=== PATIENT | female | born 1940 | race African-American/Black ===

== ENCOUNTER 2017-11-03 05:40 | Inpatient (IN) | payer OTHER ==
[2017-10-29 12:43] LABS: ANION GAP 4 (5-15); CALCIUM 9.4 mg/dL (8.4-11.0); CHLORIDE 104 mmol/L (98-107); CREATININE 1.15 mg/dL (0.55-1.30); GLUCOSE 91 mg/dL (70-99); POTASSIUM 3.8 mmol/L (3.5-5.1); SODIUM SERUM 139 mmol/L (136-145); UREA NITROGEN, BLOOD 15 mg/dL (8-21)
[2017-10-29 12:47] LABS: PROTHROMBIN TIME 10.5 SECS (9.5-12.5)
[2017-10-29 12:48] LABS: BILIRUBIN,URINE NEGATIVE (NEGATIVE); BLOOD, URINE NEGATIVE (NEGATIVE); CLARITY/URINE SL HAZY (CLEAR); COLOR,URINE YELLOW (YELLOW); GLUCOSE,URINE NEGATIVE (NEGATIVE); KETONES,URINE NEGATIVE (NEGATIVE); LEUKOCYTE ESTERASE ,URINE 1+ (NEGATIVE); NITRITE, URINE NEGATIVE (NEGATIVE); PH,URINE 6.5 (5.0-8.0); PROTEIN URINE TRACE (NEGATIVE)
[2017-10-29 12:50] LABS: BASOPHILS % (AUTO) 0.8 % (0.0-2.0); EOSINOPHILS # (AUTO) 0.1 K/uL (0.0-0.4); EOSINOPHILS % (AUTO) 1.8 % (0.0-4.0); HEMATOCRIT 34.6 % (36-48); HEMOGLOBIN 11.3 g/dL (12.0-16.0); LYMPHOCYTES # (AUTO) 1.5 K/uL (1.0-5.5); LYMPHOCYTES % (AUTO) 42.6 % (20.5-51.5); MEAN CORPUSCULAR HEMOGLOBIN 32 pg (27-31); MEAN CORPUSCULAR HGB CONC 33 % (32-36); MEAN CORPUSCULAR VOLUME 97 fL (79.0-98.0); MONOCYTES # (AUTO) 0.3 K/uL (0.0-1.0); MONOCYTES % (AUTO) 7.6 % (1.7-9.3); NEUTROPHILS # (AUTO) 1.5 K/uL (1.8-7.7); NEUTROPHILS % (AUTO) 47.2 % (40.0-70.0); PLATELET COUNT (AUTO) 204 K/uL (130-430); RED BLOOD CELL COUNT(AUTO) 3.58 MIL/uL (4.2-6.2); RED CELL DISTRIBUTION WIDTH 12.5 % (9.0-15.0); WHITE BLOOD COUNT (AUTO) 3.4 K/uL (4.8-10.8)
[2017-10-29 13:03] LABS: BACTERIA,URINE MODERATE /HPF (None Seen); RBC,URINE NONE SEEN /HPF (0-3); WBC,URINE 20-50 /HPF (0-3)
[2017-10-29 13:04] LABS: MUCUS,URINE None Seen /LPF (None Seen)
[~2017-11-03] VITALS: Ht 167.6 cm; Wt 63.5 kg
[~2017-11-03 05:40] MED LIST: COR25 PO; FURO-149 PO; LISI5TAB PO; OMEP20CA10 PO; POTA20TA83 PO
[2017-11-03] MEDS ORDERED: CELECOXIB 200 MG CAPSULE ONE (06:28)
[2017-11-03] MEDS ORDERED: GABAPENTIN 300 MG CAPSULE ONE (06:29)
[2017-11-03] MEDS ORDERED: ACETAMINOPHEN 500 MG TABLET ONE (06:29)
[2017-11-03] MEDS ORDERED: oxyCODONE HCL 10 MG TAB.ER.12H PO ONE ×2 (06:30→07:45)
[2017-11-03] MEDS ORDERED: TRANEXAMIC ACID 650 MG TABLET ONE (06:30)
[2017-11-03] MEDS ORDERED: CLINDAMYCIN 600 mg/50mL D5W 50 ML IV ONE ×2 (06:30→07:04)
[2017-11-03] MEDS ORDERED: POLYMYXIN 500,000/BACIT.10,000 UNITS in NS IRR 1 L IR ONE (07:10)
[2017-11-03] MEDS ORDERED: LISI10TA5 PO (07:24)
[2017-11-03] MEDS ORDERED: RIVA15TA PO (07:24)
[2017-11-03] MEDS ORDERED: HYDR-1189 PO (07:24)
[2017-11-03] MEDS ORDERED: GABAPENTIN 300 MG CAPSULE PO ONE (07:45)
[2017-11-03] MEDS ORDERED: TRANEXAMIC ACID 650 MG TABLET PO ONE (07:45)
[2017-11-03] MEDS ORDERED: CELECOXIB 200 MG CAPSULE PO ONE (07:45)
[2017-11-03] MEDS ORDERED: ACETAMINOPHEN 500 MG TABLET PO ONE (07:45)
[2017-11-03] MEDS ORDERED: MUPIROCIN 2% TOPICAL OINTMENT 22 GM TP PRN (07:45)
[2017-11-03] MEDS ORDERED: NACL 0.9% 1,000 ML IV ONE (07:45)
[2017-11-03] MEDS ORDERED: ROPIVACAINE 0.2% 550 ML INJ SCH ×3 (08:34→10:01)
[2017-11-03] MEDS ORDERED: ONDANSETRON HCL 4 MG/2 ML VIAL IVP PRN ×2 (08:45→09:30)
[2017-11-03] MEDS ORDERED: KETOROLAC TROMETHAMINE 30 MG VIAL IVP PRN (08:45)
[2017-11-03] MEDS ORDERED: DIPHENHYDRAMINE INJ 50 MG/ML VIAL IVP PRN (08:45)
[2017-11-03] MEDS ORDERED: NALBUPHINE HCL 10 MG/ML AMP IVP PRN (08:45)
[2017-11-03] MEDS ORDERED: HYDROmorphone 1 MG INJ. 1 MG/ML AMPUL IVP PRN (08:45)
[2017-11-03] MEDS ORDERED: fentaNYL CITRATE/PF 100 MCG/2 ML AMP IVP PRN ×2 (08:45)
[2017-11-03] MEDS ORDERED: MORPHINE 4 MG/ML INJ. SYRINGE IVP PRN (09:30)
[2017-11-03] MEDS ORDERED: DIPHENHYDRAMINE HCL 25 MG CAPSULE PO PRN (09:30)
[2017-11-03] MEDS ORDERED: KETOROLAC TROMETHAMINE 15 MG VIAL IVP PRN (09:30)
[2017-11-03] MEDS ORDERED: SENNOSIDES 8.6 MG TABLET PO PRN (09:30)
[2017-11-03] MEDS ORDERED: oxyCODONE HCL 5 MG TABLET PO PRN (09:30)
[2017-11-03] MEDS ORDERED: PROMETHAZINE HCL 25 MG/ML AMP IVP PRN (09:30)
[2017-11-03] MEDS ORDERED: LEVOFLOXACIN 500 MG/D5W 100 ML IV ONE (09:45)
[2017-11-03 10:40] VITALS: BP_SYST 121
[2017-11-03 10:45] VITALS: BP_SYST 118
[2017-11-03] MEDS: D5LR 1,000 ML IV SCH ×2 (11:07→22:21)
[2017-11-03] MEDS: CLINDAMYCIN 600 MG in D5W 50 ML IV SCH ×3 (11:59→23:43)
[2017-11-03] MEDS: ONDANSETRON HCL 4 MG/2 ML VIAL IVP PRN ×2 (12:10→18:34)
[2017-11-03 14:00] VITALS: BP_SYST 110
[2017-11-03] MEDS: ACETAMINOPHEN 500 MG TABLET PO SCH ×2 (14:34→20:25)
[2017-11-03] MEDS ORDERED: POTASSIUM CHLORIDE 20 MEQ TAB.PRT.SR PO SCH (15:00)
[2017-11-03 20:16] VITALS: BP_SYST 95
[2017-11-03] MEDS: GABAPENTIN 300 MG CAPSULE PO SCH (20:24)
[2017-11-03] MEDS: POTASSIUM CHLORIDE 20 MEQ TAB.PRT.SR PO SCH (20:24)
[2017-11-03] MEDS: CELECOXIB 200 MG CAPSULE PO SCH (20:24)
[2017-11-03] MEDS: CARVEDILOL 25 MG TABLET (COREG) PO SCH (20:34)
[2017-11-03] MEDS ORDERED: FUROSEMIDE 40 MG TABLET PO SCH (21:00)
[2017-11-04 00:38] VITALS: BP_SYST 128
[2017-11-04 04:00] VITALS: BP_SYST 98
[2017-11-04] MEDS: CLINDAMYCIN 600 MG in D5W 50 ML IV SCH (05:18)
[2017-11-04 06:23] LABS: BASOPHILS % (AUTO) 0.4 % (0.0-2.0); EOSINOPHILS # (AUTO) 0.1 K/uL (0.0-0.4); EOSINOPHILS % (AUTO) 1.8 % (0.0-4.0); HEMATOCRIT 26.5 % (36-48); HEMOGLOBIN 8.7 g/dL (12.0-16.0); LYMPHOCYTES # (AUTO) 1.1 K/uL (1.0-5.5); LYMPHOCYTES % (AUTO) 26.7 % (20.5-51.5); MEAN CORPUSCULAR HEMOGLOBIN 32 pg (27-31); MEAN CORPUSCULAR HGB CONC 33 % (32-36); MEAN CORPUSCULAR VOLUME 97 fL (79.0-98.0); MONOCYTES # (AUTO) 0.4 K/uL (0.0-1.0); MONOCYTES % (AUTO) 9.8 % (1.7-9.3); NEUTROPHILS # (AUTO) 2.6 K/uL (1.8-7.7); NEUTROPHILS % (AUTO) 61.3 % (40.0-70.0); PLATELET COUNT (AUTO) 133 K/uL (130-430); RED BLOOD CELL COUNT(AUTO) 2.74 MIL/uL (4.2-6.2); RED CELL DISTRIBUTION WIDTH 12.2 % (9.0-15.0); WHITE BLOOD COUNT (AUTO) 4.2 K/uL (4.8-10.8)
[2017-11-04 06:30] VITALS: BP_SYST 97
[2017-11-04 06:56] LABS: ANION GAP 1 (5-15); CALCIUM 8.6 mg/dL (8.4-11.0); CHLORIDE 109 mmol/L (98-107); CREATININE 1.44 mg/dL (0.55-1.30); GLUCOSE 91 mg/dL (70-99); POTASSIUM 3.9 mmol/L (3.5-5.1); SODIUM SERUM 141 mmol/L (136-145); UREA NITROGEN, BLOOD 19 mg/dL (8-21)
[2017-11-04 08:00] VITALS: BP_SYST 101
[2017-11-04] MEDS: LEVOFLOXACIN 500 MG/D5W 100 ML IV SCH (08:35)
[2017-11-04] MEDS: CELECOXIB 200 MG CAPSULE PO SCH ×2 (08:35→21:10)
[2017-11-04] MEDS: POTASSIUM CHLORIDE 20 MEQ TAB.PRT.SR PO SCH ×2 (08:36→21:09)
[2017-11-04] MEDS: OMEPRAZOLE 20 MG CAPSULE.DR (PriLOSEC) PO SCH (08:36)
[2017-11-04] MEDS: ACETAMINOPHEN 500 MG TABLET PO SCH ×3 (09:00→21:09)
[2017-11-04] MEDS ORDERED: LISINOPRIL 5 MG TABLET PO SCH (09:00)
[2017-11-04] MEDS: CARVEDILOL 25 MG TABLET (COREG) PO SCH ×2 (09:00→21:11)
[2017-11-04] MEDS: LISINOPRIL 10 MG TABLET (PRINIVIL) PO SCH (09:00)
[2017-11-04] MEDS: FUROSEMIDE 40 MG TABLET PO SCH (09:00)
[2017-11-04] MEDS: RIVAROXABAN 15 MG TABLET PO SCH (10:19)
[2017-11-04] MEDS: D5LR 1,000 ML IV SCH ×2 (10:24→15:25)
[2017-11-04 12:01] VITALS: BP_SYST 115
[2017-11-04 16:19] VITALS: BP_SYST 114
[2017-11-04] MEDS: GABAPENTIN 300 MG CAPSULE PO SCH (21:09)
[2017-11-04] MEDS: oxyCODONE HCL 5 MG TABLET PO PRN (23:26)
[2017-11-05 00:01] VITALS: BP_SYST 121
[2017-11-05] MEDS: D5LR 1,000 ML IV SCH ×2 (01:25→11:25)
[2017-11-05] MEDS: oxyCODONE HCL 5 MG TABLET PO PRN (04:14)
[2017-11-05 06:05] LABS: BASOPHILS % (AUTO) 0.1 % (0.0-2.0); EOSINOPHILS % (AUTO) 0.3 % (0.0-4.0); HEMATOCRIT 24.9 % (36-48); HEMOGLOBIN 8.3 g/dL (12.0-16.0); LYMPHOCYTES # (AUTO) 0.6 K/uL (1.0-5.5); LYMPHOCYTES % (AUTO) 6.1 % (20.5-51.5); MEAN CORPUSCULAR HEMOGLOBIN 32 pg (27-31); MEAN CORPUSCULAR HGB CONC 33 % (32-36); MEAN CORPUSCULAR VOLUME 97 fL (79.0-98.0); MONOCYTES # (AUTO) 0.5 K/uL (0.0-1.0); NEUTROPHILS # (AUTO) 8.4 K/uL (1.8-7.7); NEUTROPHILS % (AUTO) 88.5 % (40.0-70.0); PLATELET COUNT (AUTO) 117 K/uL (130-430); RED BLOOD CELL COUNT(AUTO) 2.57 MIL/uL (4.2-6.2); RED CELL DISTRIBUTION WIDTH 12.4 % (9.0-15.0); WHITE BLOOD COUNT (AUTO) 9.5 K/uL (4.8-10.8)
[2017-11-05 06:09] VITALS: BP_SYST 123
[2017-11-05 06:46] LABS: ANION GAP 6 (5-15); CALCIUM 8.3 mg/dL (8.4-11.0); CHLORIDE 108 mmol/L (98-107); CREATININE 1.44 mg/dL (0.55-1.30); GLUCOSE 132 mg/dL (70-99); POTASSIUM 4.5 mmol/L (3.5-5.1); SODIUM SERUM 141 mmol/L (136-145); UREA NITROGEN, BLOOD 17 mg/dL (8-21)
[2017-11-05 08:28] VITALS: BP_SYST 92
[2017-11-05] MEDS: CELECOXIB 200 MG CAPSULE PO SCH (09:00)
[2017-11-05] MEDS: LEVOFLOXACIN 500 MG/D5W 100 ML IV SCH (09:00)
[2017-11-05] MEDS: CARVEDILOL 25 MG TABLET (COREG) PO SCH (09:00)
[2017-11-05] MEDS: FUROSEMIDE 40 MG TABLET PO SCH (09:00)
[2017-11-05] MEDS: LISINOPRIL 10 MG TABLET (PRINIVIL) PO SCH (09:00)
[2017-11-05] MEDS: OMEPRAZOLE 20 MG CAPSULE.DR (PriLOSEC) PO SCH (09:05)
[2017-11-05] MEDS: ACETAMINOPHEN 500 MG TABLET PO SCH ×2 (09:07→14:09)
[2017-11-05] MEDS: POTASSIUM CHLORIDE 20 MEQ TAB.PRT.SR PO SCH (09:07)
[2017-11-05] MEDS: RIVAROXABAN 15 MG TABLET PO SCH (10:24)
[2017-11-05 10:47] VITALS: BP_SYST 90
[2017-11-05 12:06] VITALS: BP_SYST 97
[2017-11-05 16:25] VITALS: BP_SYST 106
== END 2017-11-05 18:50 | disposition home health service (06) | DRG 470 ==
LOC: SMU 05:40 → STU 10:35 → SMU 11-04 22:22
PROVIDERS: ADMIT Orthopaedic Surgery; ATTEND Orthopaedic Surgery
PROC: 0SRD0J9 Replacement of Left Knee Joint with Synthetic Substitute, Cemented, Open Approach (ICD-10-PCS; principal; 2017-11-03 07:30)
DX: M17.12 Unilateral primary osteoarthritis, left knee (principal); Z86.74 Personal history of sudden cardiac arrest; M25.762 Osteophyte, left knee; I25.10 Atherosclerotic heart disease of native coronary artery without angina pectoris; I10 Essential (primary) hypertension; Z85.72 Personal history of non-Hodgkin lymphomas; Z88.0 Allergy status to penicillin; I25.2 Old myocardial infarction
CPT/HCPCS: 36415; 71046-TC; 80048; 81000-TC; 85025; 85610-TC; 85730-TC; 87081; 87086; 87186-TC; 88305; 88311; 97039; 97110-GP; 97116-GP; 97530-GP; 97535-GP; J1200; J1885; J1956; J2405; J2795; J3490; J7060; J7120

== ENCOUNTER 2018-03-09 09:15 | Emergency (ER) | payer OTHER ==
[~2018-03-09] VITALS: Ht 167.6 cm; Wt 65.3 kg
[2018-03-09 09:15] VITALS: BP_SYST 146
[~2018-03-09 09:15] MED LIST changes: +HYDR-1189 PO; +LISI10TA5 PO; +RIVA15TA PO
[2018-03-09] MEDS ORDERED: NACL 0.9% 1,000 ML IV ONE (10:01)
[2018-03-09] MEDS ORDERED: KETOROLAC TROMETHAMINE 15 MG VIAL IVP ONE (10:15)
[2018-03-09 10:27] LABS: ALANINE AMINOTRANSFERASE 9 U/L (12-78); ALBUMIN 2.9 g/dL (3.4-4.8); ANION GAP 9 (5-15); ASPARTATE AMINOTRANSFERASE 14 U/L (10-37); CALCIUM 8.6 mg/dL (8.4-11.0); CHLORIDE 104 mmol/L (98-107); CREATININE 1.63 mg/dL (0.55-1.30); GLUCOSE 161 mg/dL (70-99); LIPASE 77 U/L (73-393); POTASSIUM 3.5 mmol/L (3.5-5.1); SODIUM SERUM 138 mmol/L (136-145); TOTAL BILIRUBIN 1.5 mg/dL (0.0-1.0)
[2018-03-09] MEDS ORDERED: POTA8TAB4 PO (10:38)
[2018-03-09] MEDS ORDERED: MELO15TA13 PO (10:38)
[2018-03-09] MEDS ORDERED: OMEP40CA33 PO (10:38)
[2018-03-09] MEDS ORDERED: LISI40TA4 PO (10:38)
[2018-03-09 10:45] LABS: HEMATOCRIT 33.2 % (36-48); HEMOGLOBIN 11.2 g/dL (12.0-16.0); MEAN CORPUSCULAR HEMOGLOBIN 33 pg (27-31); MEAN CORPUSCULAR HGB CONC 34 % (32-36); MEAN CORPUSCULAR VOLUME 97 fL (79.0-98.0); PLATELET COUNT (AUTO) 121 K/uL (130-430); RED BLOOD CELL COUNT(AUTO) 3.42 MIL/uL (4.2-6.2); RED CELL DISTRIBUTION WIDTH 13.9 % (9.0-15.0); WHITE BLOOD COUNT (AUTO) 10.7 K/uL (4.8-10.8)
[2018-03-09 10:46] LABS: UREA NITROGEN, BLOOD 28 mg/dL (8-21)
[2018-03-09 11:19] LABS: BILIRUBIN,URINE 2+ (NEGATIVE); BLOOD, URINE 2+ (NEGATIVE); CLARITY/URINE HAZY (CLEAR); COLOR,URINE AMBER (YELLOW); GLUCOSE,URINE NEGATIVE (NEGATIVE); KETONES,URINE TRACE (NEGATIVE); LEUKOCYTE ESTERASE ,URINE TRACE (NEGATIVE); NITRITE, URINE POSITIVE (NEGATIVE); PH,URINE 5.5 (5.0-8.0); PROTEIN URINE 3+ (NEGATIVE)
[2018-03-09 11:36] LABS: ATYPICAL LYMPHOCYTES % 0 % (0-0); BAND % (MANUAL) 8 % (0-6); LYMPHOCYTES % (MANUAL) 8 % (20-46); MONOCYTES % (MANUAL) 4 % (0-11)
[2018-03-09 11:49] LABS: BACTERIA,URINE MANY /HPF (None Seen); MUCUS,URINE 1+ /LPF (None Seen)
[2018-03-09 11:58] LABS: BASOPHILS % (MANUAL) 0 % (0-2); EOSINOPHILS % (MANUAL) 0 % (0-7)
[2018-03-09 12:15] VITALS: BP_SYST 108
== END 2018-03-09 12:15 | disposition home or self-care (01) ==
LOC: SED 09:15
DX: R10.30 Lower abdominal pain, unspecified (principal); K92.0 Hematemesis; R50.9 Fever, unspecified; Z88.0 Allergy status to penicillin; I10 Essential (primary) hypertension; Z79.899 Other long term (current) drug therapy; R19.7 Diarrhea, unspecified
CPT/HCPCS: 36415; 80053; 81000; 83690; 85007; 85027; 87086; 96361; 96374; 99284; J1885; J7030

== ENCOUNTER 2018-03-14 09:42 | Inpatient (IN) | payer OTHER ==
[~2018-03-14] VITALS: Ht 167.6 cm; Wt 64.4 kg
[~2018-03-14 09:42] MED LIST changes: -HYDR-1189 PO; -LISI10TA5 PO; +LISI40TA4 PO; -LISI5TAB PO; +MELO15TA13 PO; -OMEP20CA10 PO; +OMEP40CA33 PO; -POTA20TA83 PO; +POTA8TAB4 PO; -RIVA15TA PO
[2018-03-14 09:47] VITALS: BP_SYST 139
[2018-03-14 10:30] LABS: BILIRUBIN,URINE 2+ (NEGATIVE); BLOOD, URINE 1+ (NEGATIVE); CLARITY/URINE HAZY (CLEAR); COLOR,URINE AMBER (YELLOW); GLUCOSE,URINE NEGATIVE (NEGATIVE); KETONES,URINE TRACE (NEGATIVE); LEUKOCYTE ESTERASE ,URINE TRACE (NEGATIVE); PROTEIN URINE 2+ (NEGATIVE)
[2018-03-14 10:34] LABS: NITRITE, URINE POSITIVE (NEGATIVE)
[2018-03-14 10:37] LABS: BACTERIA,URINE MANY /HPF (None Seen)
[2018-03-14 10:38] LABS: MUCUS,URINE 1+ /LPF (None Seen)
[2018-03-14 10:47] LABS: ANION GAP 9 (5-15); BASOPHILS # (AUTO) 0.2 K/uL (0.0-0.2); CALCIUM 8.9 mg/dL (8.4-11.0); CHLORIDE 107 mmol/L (98-107); CREATININE 1.42 mg/dL (0.55-1.30); EOSINOPHILS % (AUTO) 0.1 % (0.0-4.0); GLUCOSE 114 mg/dL (70-99); HEMOGLOBIN 9.7 g/dL (12.0-16.0); LYMPHOCYTES # (AUTO) 0.6 K/uL (1.0-5.5); LYMPHOCYTES % (AUTO) 3.7 % (20.5-51.5); MEAN CORPUSCULAR HEMOGLOBIN 33 pg (27-31); MEAN CORPUSCULAR HGB CONC 35 % (32-36); MEAN CORPUSCULAR VOLUME 96 fL (79.0-98.0); MONOCYTES # (AUTO) 0.3 K/uL (0.0-1.0); MONOCYTES % (AUTO) 1.8 % (1.7-9.3); NEUTROPHILS # (AUTO) 16.1 K/uL (1.8-7.7); NEUTROPHILS % (AUTO) 93.4 % (40.0-70.0); PLATELET COUNT (AUTO) 316 K/uL (130-430); RED BLOOD CELL COUNT(AUTO) 2.91 MIL/uL (4.2-6.2); RED CELL DISTRIBUTION WIDTH 14.1 % (9.0-15.0); SODIUM SERUM 140 mmol/L (136-145); UREA NITROGEN, BLOOD 16 mg/dL (8-21); WHITE BLOOD COUNT (AUTO) 17.2 K/uL (4.8-10.8)
[2018-03-14 10:48] LABS: POTASSIUM 3.5 mmol/L (3.5-5.1)
[2018-03-14 10:50] LABS: INR 1.1 (0.8-1.2); PROTHROMBIN TIME 11.3 SECS (9.5-12.5)
[2018-03-14 10:53] LABS: ALANINE AMINOTRANSFERASE 14 U/L (12-78); ALBUMIN 2.3 g/dL (3.4-4.8); AMYLASE 65 U/L (0-100); ASPARTATE AMINOTRANSFERASE 28 U/L (10-37); LIPASE 209 U/L (73-393); TOTAL BILIRUBIN 1.4 mg/dL (0.0-1.0)
[2018-03-14] MEDS ORDERED: MORPHINE 4 MG/ML INJ. SYRINGE IVP ONE (12:00)
[2018-03-14] MEDS ORDERED: ONDANSETRON HCL 4 MG/2 ML VIAL IVP ONE (12:00)
[2018-03-14] MEDS ORDERED: metroNIDAZOLE 500 mg/NS 100 ML IV ONE (12:00)
[2018-03-14] MEDS ORDERED: NACL 0.9% 1,000 ML IV ONE (12:00)
[2018-03-14] MEDS ORDERED: PIPERACILLIN/TAZO 3.375 GM in NS 50 ML IV ONE (12:00)
[2018-03-14] MEDS ORDERED: PIPERACILLIN/TAZOBACTAM 3.375 GM/VIAL (ZOSYN) IV ONE (12:12)
[2018-03-14] MEDS ORDERED: METRONIDAZOLE IV ONE (12:33)
[2018-03-14] MEDS ORDERED: NS IV ONE (12:33)
[2018-03-14] MEDS ORDERED: D5/0.45 NS 1,000 ML IV ONE (13:00)
[2018-03-14 13:33] VITALS: BP_SYST 102
[2018-03-14] MEDS ORDERED: MORPHINE 2 MG/ML INJ. SYRINGE IVP PRN (15:30)
[2018-03-14] MEDS: MORPHINE 4 MG/ML INJ. SYRINGE IVP PRN (15:39)
[2018-03-14 16:26] VITALS: BP_SYST 102
[2018-03-14] MEDS ORDERED: ALBUMIN HUMAN 25% 12.5 GM/50 ML VIAL IV ONE (19:00)
[2018-03-14] MEDS ORDERED: NEOSTIGMINE METHYLSULFATE 1 MG/ML, 10 ML VIAL IVP ONE (19:00)
[2018-03-14] MEDS ORDERED: fentaNYL CITRATE/PF 100 MCG/2 ML AMP IVP ONE (19:00)
[2018-03-14] MEDS ORDERED: ROCURONIUM BROMIDE 10 MG/ML (ZEMURON) IV ONE (19:00)
[2018-03-14] MEDS ORDERED: PROPOFOL 200MG/ 20ML VIAL (DIPRIVAN) IV ONE (19:00)
[2018-03-14] MEDS ORDERED: LR 1,000 ML IV.SOLN IV ONE (19:00)
[2018-03-14] MEDS ORDERED: BUPIVACAINE /PF 0.25% 30 ML VIAL INJ ONE (19:00)
[2018-03-14] MEDS ORDERED: ePHEDrine sulfate 50 MG/ML VIAL IVP ONE (19:00)
[2018-03-14] MEDS ORDERED: GLYCOPYRROLATE 0.2 MG/ML VIAL IJ ONE (19:00)
[2018-03-14] MEDS ORDERED: MIDAZOLAM HCL 5 MG/5 ML VIAL IVP ONE (19:00)
[2018-03-14] MEDS ORDERED: SEVOFLURANE 15 MIN GAS INH ONE (19:00)
[2018-03-14] MEDS ORDERED: ONDANSETRON HCL 4 MG/2 ML VIAL IVP PRN ×2 (19:45→22:00)
[2018-03-14] MEDS ORDERED: fentaNYL CITRATE/PF 100 MCG/2 ML AMP IVP PRN ×2 (19:45)
[2018-03-14 20:23] VITALS: BP_SYST 102
[2018-03-14] MEDS ORDERED: ACETAMINOPHEN 325 MG TABLET PO PRN ×2 (22:00)
[2018-03-14] MEDS ORDERED: MORPHINE 4 MG/ML INJ. SYRINGE IVP PRN (22:00)
[2018-03-14] MEDS ORDERED: ZOLPIDEM TARTRATE 5 MG TABLET PO PRN (22:00)
[2018-03-14] MEDS ORDERED: fentaNYL CITRATE/PF 100 MCG/2 ML AMP ONE (22:05)
[2018-03-14 22:45] VITALS: BP_SYST 99
[2018-03-14] MEDS ORDERED: metroNIDAZOLE 500 mg/NS 200 ML IV ONE (22:57)
[2018-03-14 23:00] VITALS: BP_SYST 98
[2018-03-14] MEDS ORDERED: NS 500 ML IV ONE (23:00)
[2018-03-14] MEDS: KCL 20 mEq in D5NS 1000 mL 1,000 ML IV SCH (23:13)
[2018-03-14] MEDS: metroNIDAZOLE 500 mg/NS 100 ML IV SCH (23:23)
[2018-03-15] VITALS (23 sets, daily range): BP systolic 89–115
[2018-03-15] MEDS: MORPHINE 4 MG/ML INJ. SYRINGE IVP PRN ×3 (05:05→21:45)
[2018-03-15 05:20] LABS: HEMATOCRIT 23.4 % (36-48); HEMOGLOBIN 7.9 g/dL (12.0-16.0); MEAN CORPUSCULAR HEMOGLOBIN 33 pg (27-31); MEAN CORPUSCULAR HGB CONC 34 % (32-36); MEAN CORPUSCULAR VOLUME 98 fL (79.0-98.0); PLATELET COUNT (AUTO) 269 K/uL (130-430); RED CELL DISTRIBUTION WIDTH 14.1 % (9.0-15.0); WHITE BLOOD COUNT (AUTO) 23.4 K/uL (4.8-10.8)
[2018-03-15 05:35] LABS: ANION GAP 7 (5-15); CALCIUM 7.9 mg/dL (8.4-11.0); CHLORIDE 110 mmol/L (98-107); CREATININE 1.21 mg/dL (0.55-1.30); GLUCOSE 193 mg/dL (70-99); POTASSIUM 3.5 mmol/L (3.5-5.1); SODIUM SERUM 140 mmol/L (136-145); UREA NITROGEN, BLOOD 13 mg/dL (8-21)
[2018-03-15 05:36] LABS: ALANINE AMINOTRANSFERASE 8 U/L (12-78); ALBUMIN 1.9 g/dL (3.4-4.8); ASPARTATE AMINOTRANSFERASE 17 U/L (10-37)
[2018-03-15 05:42] LABS: TOTAL BILIRUBIN 3.4 mg/dL (0.0-1.0)
[2018-03-15 05:47] LABS: BAND % (MANUAL) 13 % (0-6); BASOPHILS % (MANUAL) 0 % (0-2); EOSINOPHILS % (MANUAL) 0 % (0-7); LYMPHOCYTES % (MANUAL) 1 % (20-46); MONOCYTES % (MANUAL) 2 % (0-11)
[2018-03-15] MEDS: metroNIDAZOLE 500 mg/NS 100 ML IV SCH ×3 (06:17→21:45)
[2018-03-15] MEDS: KCL 20 mEq in D5NS 1000 mL 1,000 ML IV SCH ×3 (07:27→18:15)
[2018-03-15] MEDS: ENOXAPARIN SODIUM 40 MG/0.4 ML SYRINGE SUBCUT SCH (08:41)
[2018-03-15] MEDS ORDERED: POTASSIUM CHLORIDE 8 MEQ TABLET.SA PO ONE (11:15)
[2018-03-15] MEDS ORDERED: FUROSEMIDE 40 MG TABLET PO ONE (11:15)
[2018-03-15] MEDS ORDERED: MELOXICAM 7.5 MG TABLET PO ONE (11:15)
[2018-03-15] MEDS ORDERED: LISINOPRIL 20 MG TABLET PO ONE (11:15)
[2018-03-15] MEDS ORDERED: CARVEDILOL 25 MG TABLET (COREG) PO ONE (11:15)
[2018-03-15] MEDS: OMEPRAZOLE 20 MG CAPSULE.DR (PriLOSEC) PO SCH ×3 (11:30→20:14)
[2018-03-15] MEDS: VANCOMYCIN HCL 1,000 MG in NS 250 ML IV SCH (17:23)
[2018-03-15] MEDS ORDERED: *PPN PER PHARMACY XX PRN (18:30)
[2018-03-15] MEDS ORDERED: DEXTROSE 50% JECT 50 ML DISP.SYRIN IVP PRN (18:30)
[2018-03-15] MEDS ORDERED: D10W 1,000 ML IV SCH (19:00)
[2018-03-15] MEDS: CARVEDILOL 25 MG TABLET (COREG) PO SCH (20:14)
[2018-03-16] VITALS (15 sets, daily range): BP systolic 91–118
[2018-03-16] MEDS: KCL 20 mEq in D5NS 1000 mL 1,000 ML IV SCH ×4 (00:59→20:55)
[2018-03-16] MEDS: LORazepam 2 MG/ML VIAL IVP PRN ×2 (01:00→23:37)
[2018-03-16] MEDS: metroNIDAZOLE 500 mg/NS 100 ML IV SCH ×3 (06:16→21:21)
[2018-03-16] MEDS: OMEPRAZOLE 20 MG CAPSULE.DR (PriLOSEC) PO SCH ×4 (06:16→20:13)
[2018-03-16] MEDS ORDERED: OMEPRAZOLE 20 MG CAPSULE.DR (PriLOSEC) ONE ×2 (06:17→06:19)
[2018-03-16] MEDS: MORPHINE 2 MG/ML INJ. SYRINGE IVP PRN ×3 (06:37→15:20)
[2018-03-16 06:51] LABS: BASOPHILS # (AUTO) 0.1 K/uL (0.0-0.2); BASOPHILS % (AUTO) 0.4 % (0.0-2.0); EOSINOPHILS # (AUTO) 0.1 K/uL (0.0-0.4); EOSINOPHILS % (AUTO) 0.6 % (0.0-4.0); HEMATOCRIT 26.5 % (36-48); HEMOGLOBIN 9.1 g/dL (12.0-16.0); LYMPHOCYTES # (AUTO) 0.8 K/uL (1.0-5.5); LYMPHOCYTES % (AUTO) 4.7 % (20.5-51.5); MEAN CORPUSCULAR HEMOGLOBIN 33 pg (27-31); MEAN CORPUSCULAR HGB CONC 34 % (32-36); MEAN CORPUSCULAR VOLUME 95 fL (79.0-98.0); MONOCYTES # (AUTO) 0.5 K/uL (0.0-1.0); MONOCYTES % (AUTO) 2.6 % (1.7-9.3); NEUTROPHILS # (AUTO) 16.3 K/uL (1.8-7.7); NEUTROPHILS % (AUTO) 91.7 % (40.0-70.0); PLATELET COUNT (AUTO) 295 K/uL (130-430); RED BLOOD CELL COUNT(AUTO) 2.79 MIL/uL (4.2-6.2); RED CELL DISTRIBUTION WIDTH 15.8 % (9.0-15.0); WHITE BLOOD COUNT (AUTO) 17.8 K/uL (4.8-10.8)
[2018-03-16 07:03] LABS: ALANINE AMINOTRANSFERASE 7 U/L (12-78); ALBUMIN 1.6 g/dL (3.4-4.8); ANION GAP 4 (5-15); ASPARTATE AMINOTRANSFERASE 18 U/L (10-37); CHLORIDE 117 mmol/L (98-107); CREATININE 0.95 mg/dL (0.55-1.30); GLUCOSE 143 mg/dL (70-99); POTASSIUM 3.9 mmol/L (3.5-5.1); SODIUM SERUM 144 mmol/L (136-145); TOTAL BILIRUBIN 3.9 mg/dL (0.0-1.0); UREA NITROGEN, BLOOD 12 mg/dL (8-21)
[2018-03-16 08:36] LABS: PHOSPHORUS 2.4 mg/dL (2.7-4.5)
[2018-03-16] MEDS: CARVEDILOL 25 MG TABLET (COREG) PO SCH ×2 (09:00→20:14)
[2018-03-16] MEDS: LISINOPRIL 20 MG TABLET PO SCH (09:00)
[2018-03-16] MEDS: MELOXICAM 7.5 MG TABLET PO SCH (09:07)
[2018-03-16] MEDS: POTASSIUM CHLORIDE 8 MEQ TABLET.SA PO SCH (09:08)
[2018-03-16] MEDS: FUROSEMIDE 40 MG TABLET PO SCH (10:17)
[2018-03-16] MEDS: ENOXAPARIN SODIUM 40 MG/0.4 ML SYRINGE SUBCUT SCH (11:17)
[2018-03-16] MEDS: VANCOMYCIN HCL 1,000 MG in NS 250 ML IV SCH (16:02)
[2018-03-16] MEDS ORDERED: TPN PERIPHERAL 0.0001 ML, SODIUM ACETATE 40 MEQ, POTASSIUM ACETATE 20 MEQ, K PHOS 9 MM,... IV SCH ×10 (18:00)
[2018-03-16] MEDS: FAT EMULSIONS 250 ML IV SCH (18:06)
[2018-03-16] MEDS: TPN PERIPHERAL 0.0001 ML, SODIUM ACETATE 40 MEQ, POTASSIUM ACETATE 20 MEQ, K PHOS 9 MM,... IV SCH ×9 (18:07)
[2018-03-16] MEDS: MORPHINE 4 MG/ML INJ. SYRINGE IVP PRN (20:13)
[2018-03-16] MEDS: INSULIN REGULAR, HUMAN 100 UNITS/ML, 10 ML VIAL (novoLIN R) SUBCUT PRN (23:37)
[2018-03-17 01:10] VITALS: BP_SYST 110
[2018-03-17] MEDS: KCL 20 mEq in D5NS 1000 mL 1,000 ML IV SCH ×3 (04:03→15:50)
[2018-03-17] MEDS: metroNIDAZOLE 500 mg/NS 100 ML IV SCH ×3 (05:33→21:57)
[2018-03-17] MEDS: ONDANSETRON HCL 4 MG/2 ML VIAL IVP PRN (05:48)
[2018-03-17] MEDS: OMEPRAZOLE 20 MG CAPSULE.DR (PriLOSEC) PO SCH ×4 (06:09→21:54)
[2018-03-17 06:31] LABS: ALANINE AMINOTRANSFERASE 7 U/L (12-78); ALBUMIN 1.5 g/dL (3.4-4.8); ANION GAP 5 (5-15); ASPARTATE AMINOTRANSFERASE 18 U/L (10-37); CALCIUM 7.8 mg/dL (8.4-11.0); CHLORIDE 114 mmol/L (98-107); CREATININE 0.94 mg/dL (0.55-1.30); GLUCOSE 140 mg/dL (70-99); POTASSIUM 4.2 mmol/L (3.5-5.1); SODIUM SERUM 143 mmol/L (136-145); TOTAL BILIRUBIN 1.6 mg/dL (0.0-1.0); UREA NITROGEN, BLOOD 13 mg/dL (8-21)
[2018-03-17 06:37] LABS: BASOPHILS % (AUTO) 0.2 % (0.0-2.0); EOSINOPHILS # (AUTO) 0.1 K/uL (0.0-0.4); EOSINOPHILS % (AUTO) 1.1 % (0.0-4.0); HEMATOCRIT 26.1 % (36-48); HEMOGLOBIN 8.8 g/dL (12.0-16.0); LYMPHOCYTES # (AUTO) 0.6 K/uL (1.0-5.5); LYMPHOCYTES % (AUTO) 6.1 % (20.5-51.5); MEAN CORPUSCULAR HEMOGLOBIN 32 pg (27-31); MEAN CORPUSCULAR HGB CONC 34 % (32-36); MEAN CORPUSCULAR VOLUME 96 fL (79.0-98.0); MONOCYTES # (AUTO) 0.3 K/uL (0.0-1.0); MONOCYTES % (AUTO) 3.2 % (1.7-9.3); NEUTROPHILS # (AUTO) 9.5 K/uL (1.8-7.7); NEUTROPHILS % (AUTO) 89.4 % (40.0-70.0); PLATELET COUNT (AUTO) 361 K/uL (130-430); RED BLOOD CELL COUNT(AUTO) 2.73 MIL/uL (4.2-6.2); RED CELL DISTRIBUTION WIDTH 15.9 % (9.0-15.0); WHITE BLOOD COUNT (AUTO) 10.5 K/uL (4.8-10.8)
[2018-03-17 07:09] LABS: C-REACTIVE PROTEIN QUANT < 0.2 mg/dL (0-0.5)
[2018-03-17 07:39] LABS: ERYTHROCYTE SEDIMENTATION RATE 38 MM/HR (0-20)
[2018-03-17 08:25] VITALS: BP_SYST 119
[2018-03-17] MEDS: MELOXICAM 7.5 MG TABLET PO SCH (08:33)
[2018-03-17] MEDS: CARVEDILOL 25 MG TABLET (COREG) PO SCH ×2 (08:34→21:54)
[2018-03-17] MEDS: LISINOPRIL 20 MG TABLET PO SCH (08:34)
[2018-03-17] MEDS: FUROSEMIDE 40 MG TABLET PO SCH (08:34)
[2018-03-17] MEDS: POTASSIUM CHLORIDE 8 MEQ TABLET.SA PO SCH (08:35)
[2018-03-17] MEDS: ENOXAPARIN SODIUM 40 MG/0.4 ML SYRINGE SUBCUT SCH (08:36)
[2018-03-17] MEDS: MORPHINE 4 MG/ML INJ. SYRINGE IVP PRN ×3 (08:38→20:31)
[2018-03-17 11:10] VITALS: BP_SYST 114
[2018-03-17] MEDS: INSULIN REGULAR, HUMAN 100 UNITS/ML, 10 ML VIAL (novoLIN R) SUBCUT PRN (11:34)
[2018-03-17] MEDS: LORazepam 2 MG/ML VIAL IVP PRN ×2 (11:37→22:12)
[2018-03-17 15:34] VITALS: BP_SYST 119
[2018-03-17] MEDS: VANCOMYCIN HCL 1,000 MG in NS 250 ML IV SCH (17:11)
[2018-03-17] MEDS: FAT EMULSIONS 250 ML IV SCH (17:12)
[2018-03-17] MEDS: TPN PERIPHERAL 0.0001 ML, SODIUM ACETATE 40 MEQ, POTASSIUM ACETATE 20 MEQ, K PHOS 9 MM,... IV SCH ×9 (17:13)
[2018-03-17 20:15] VITALS: BP_SYST 116
[2018-03-17 20:40] VITALS: BP_SYST 114
[2018-03-18 00:21] VITALS: BP_SYST 101
[2018-03-18] MEDS: KCL 20 mEq in D5NS 1000 mL 1,000 ML IV SCH ×4 (01:13→17:23)
[2018-03-18] MEDS: metroNIDAZOLE 500 mg/NS 100 ML IV SCH ×2 (06:28→21:39)
[2018-03-18] MEDS: OMEPRAZOLE 20 MG CAPSULE.DR (PriLOSEC) PO SCH ×4 (06:46→21:39)
[2018-03-18 07:03] LABS: ANION GAP 5 (5-15); CHLORIDE 111 mmol/L (98-107); CREATININE 0.88 mg/dL (0.55-1.30); GLUCOSE 132 mg/dL (70-99); POTASSIUM 3.9 mmol/L (3.5-5.1); SODIUM SERUM 142 mmol/L (136-145); UREA NITROGEN, BLOOD 15 mg/dL (8-21)
[2018-03-18 07:39] LABS: BASOPHILS % (AUTO) 0.3 % (0.0-2.0); EOSINOPHILS # (AUTO) 0.1 K/uL (0.0-0.4); EOSINOPHILS % (AUTO) 1.9 % (0.0-4.0); HEMATOCRIT 26.7 % (36-48); HEMOGLOBIN 8.6 g/dL (12.0-16.0); LYMPHOCYTES # (AUTO) 0.6 K/uL (1.0-5.5); LYMPHOCYTES % (AUTO) 9.7 % (20.5-51.5); MEAN CORPUSCULAR HEMOGLOBIN 31 pg (27-31); MEAN CORPUSCULAR HGB CONC 32 % (32-36); MEAN CORPUSCULAR VOLUME 96 fL (79.0-98.0); MONOCYTES # (AUTO) 0.5 K/uL (0.0-1.0); MONOCYTES % (AUTO) 7.9 % (1.7-9.3); NEUTROPHILS # (AUTO) 5.3 K/uL (1.8-7.7); NEUTROPHILS % (AUTO) 80.2 % (40.0-70.0); PLATELET COUNT (AUTO) 397 K/uL (130-430); RED BLOOD CELL COUNT(AUTO) 2.79 MIL/uL (4.2-6.2); RED CELL DISTRIBUTION WIDTH 16.1 % (9.0-15.0); WHITE BLOOD COUNT (AUTO) 6.5 K/uL (4.8-10.8)
[2018-03-18] MEDS: CARVEDILOL 25 MG TABLET (COREG) PO SCH ×2 (07:58→21:40)
[2018-03-18] MEDS: FUROSEMIDE 40 MG TABLET PO SCH (07:58)
[2018-03-18] MEDS: POTASSIUM CHLORIDE 8 MEQ TABLET.SA PO SCH (07:58)
[2018-03-18] MEDS: MELOXICAM 7.5 MG TABLET PO SCH (07:58)
[2018-03-18] MEDS: LISINOPRIL 20 MG TABLET PO SCH (07:59)
[2018-03-18] MEDS: MORPHINE 4 MG/ML INJ. SYRINGE IVP PRN ×3 (08:07→21:48)
[2018-03-18] MEDS: ENOXAPARIN SODIUM 40 MG/0.4 ML SYRINGE SUBCUT SCH (08:10)
[2018-03-18 08:30] VITALS: BP_SYST 119
[2018-03-18 08:37] LABS: ERYTHROCYTE SEDIMENTATION RATE 59 MM/HR (0-20)
[2018-03-18 11:15] VITALS: BP_SYST 126
[2018-03-18] MEDS: HYDROcodone/ACETAMIN 5-325 MG TAB (NORCO/ VICODIN) PO PRN (11:40)
[2018-03-18 15:02] VITALS: BP_SYST 124
[2018-03-18] MEDS: FAT EMULSIONS 250 ML IV SCH (17:21)
[2018-03-18] MEDS: POTASSIUM ACETATE IV SCH ×9 (17:22)
[2018-03-18] MEDS: TPN PERIPHERAL IV SCH ×9 (17:22)
[2018-03-18] MEDS: [UNRECOGNIZED DRUG - OTHER] IV SCH ×9 (17:22)
[2018-03-18] MEDS: SODIUM ACETATE IV SCH ×9 (17:22)
[2018-03-18 20:30] VITALS: BP_SYST 136
[2018-03-18] MEDS: INSULIN REGULAR, HUMAN 100 UNITS/ML, 10 ML VIAL (novoLIN R) SUBCUT PRN (23:38)
[2018-03-19 00:21] VITALS: BP_SYST 126
[2018-03-19] MEDS: MORPHINE 4 MG/ML INJ. SYRINGE IVP PRN ×4 (03:30→20:30)
[2018-03-19] MEDS: ONDANSETRON HCL 4 MG/2 ML VIAL IVP PRN ×2 (03:30→15:17)
[2018-03-19 04:00] VITALS: BP_SYST 134
[2018-03-19 05:36] LABS: BASOPHILS % (AUTO) 0.2 % (0.0-2.0); EOSINOPHILS # (AUTO) 0.1 K/uL (0.0-0.4); EOSINOPHILS % (AUTO) 1.2 % (0.0-4.0); HEMATOCRIT 27.6 % (36-48); HEMOGLOBIN 9.2 g/dL (12.0-16.0); LYMPHOCYTES # (AUTO) 0.6 K/uL (1.0-5.5); LYMPHOCYTES % (AUTO) 10.3 % (20.5-51.5); MEAN CORPUSCULAR HEMOGLOBIN 32 pg (27-31); MEAN CORPUSCULAR HGB CONC 34 % (32-36); MEAN CORPUSCULAR VOLUME 95 fL (79.0-98.0); MONOCYTES # (AUTO) 0.6 K/uL (0.0-1.0); MONOCYTES % (AUTO) 9.5 % (1.7-9.3); NEUTROPHILS # (AUTO) 4.7 K/uL (1.8-7.7); NEUTROPHILS % (AUTO) 78.8 % (40.0-70.0); PLATELET COUNT (AUTO) 407 K/uL (130-430); RED CELL DISTRIBUTION WIDTH 15.3 % (9.0-15.0)
[2018-03-19] MEDS: OMEPRAZOLE 20 MG CAPSULE.DR (PriLOSEC) PO SCH ×4 (06:23→20:26)
[2018-03-19] MEDS: KCL 20 mEq in D5NS 1000 mL 1,000 ML IV SCH ×3 (06:25→16:14)
[2018-03-19] MEDS: INSULIN REGULAR, HUMAN 100 UNITS/ML, 10 ML VIAL (novoLIN R) SUBCUT PRN ×4 (06:30→23:41)
[2018-03-19 06:38] LABS: ALANINE AMINOTRANSFERASE 6 U/L (12-78); ALBUMIN 1.4 g/dL (3.4-4.8); ANION GAP 3 (5-15); ASPARTATE AMINOTRANSFERASE 15 U/L (10-37); C-REACTIVE PROTEIN QUANT 9.4 mg/dL (0-0.5); CALCIUM 7.6 mg/dL (8.4-11.0); CHLORIDE 107 mmol/L (98-107); CREATININE 0.91 mg/dL (0.55-1.30); GLUCOSE 165 mg/dL (70-99); POTASSIUM 3.7 mmol/L (3.5-5.1); SODIUM SERUM 137 mmol/L (136-145); TOTAL BILIRUBIN 0.8 mg/dL (0.0-1.0); UREA NITROGEN, BLOOD 13 mg/dL (8-21)
[2018-03-19 07:50] VITALS: BP_SYST 134
[2018-03-19 08:30] LABS: ERYTHROCYTE SEDIMENTATION RATE 58 MM/HR (0-20)
[2018-03-19] MEDS: metroNIDAZOLE 500 mg/NS 100 ML IV SCH ×2 (08:51→20:27)
[2018-03-19] MEDS: ENOXAPARIN SODIUM 40 MG/0.4 ML SYRINGE SUBCUT SCH (08:51)
[2018-03-19] MEDS: POTASSIUM CHLORIDE 8 MEQ TABLET.SA PO SCH (08:52)
[2018-03-19] MEDS: MELOXICAM 7.5 MG TABLET PO SCH (08:52)
[2018-03-19] MEDS: FUROSEMIDE 40 MG TABLET PO SCH (08:53)
[2018-03-19] MEDS: CARVEDILOL 25 MG TABLET (COREG) PO SCH ×2 (08:53→20:26)
[2018-03-19] MEDS: LISINOPRIL 20 MG TABLET PO SCH (08:53)
[2018-03-19 12:13] VITALS: BP_SYST 122
[2018-03-19 16:05] VITALS: BP_SYST 132
[2018-03-19] MEDS: FAT EMULSIONS 250 ML IV SCH (16:40)
[2018-03-19] MEDS: SODIUM ACETATE IV SCH ×9 (16:42)
[2018-03-19] MEDS: TPN PERIPHERAL IV SCH ×9 (16:42)
[2018-03-19] MEDS: [UNRECOGNIZED DRUG - OTHER] IV SCH ×9 (16:42)
[2018-03-19] MEDS: POTASSIUM ACETATE IV SCH ×9 (16:42)
[2018-03-19] MEDS ORDERED: SODIUM ACETATE IV SCH ×10 (18:00)
[2018-03-19] MEDS ORDERED: TPN PERIPHERAL IV SCH ×10 (18:00)
[2018-03-19] MEDS ORDERED: [UNRECOGNIZED DRUG - OTHER] IV SCH ×10 (18:00)
[2018-03-19] MEDS ORDERED: POTASSIUM CHLORIDE IV SCH ×10 (18:00)
[2018-03-19 20:20] VITALS: BP_SYST 121
[2018-03-20] VITALS (8 sets, daily range): BP systolic 101–130
[2018-03-20] MEDS: MORPHINE 4 MG/ML INJ. SYRINGE IVP PRN ×4 (04:02→21:51)
[2018-03-20 06:13] LABS: ALBUMIN 1.4 g/dL (3.4-4.8); ANION GAP 3 (5-15); ASPARTATE AMINOTRANSFERASE 21 U/L (10-37); C-REACTIVE PROTEIN QUANT 5.7 mg/dL (0-0.5); CALCIUM 7.8 mg/dL (8.4-11.0); CHLORIDE 109 mmol/L (98-107); CREATININE 0.75 mg/dL (0.55-1.30); GLUCOSE 127 mg/dL (70-99); PHOSPHORUS 3.3 mg/dL (2.7-4.5); POTASSIUM 4.2 mmol/L (3.5-5.1); SODIUM SERUM 137 mmol/L (136-145); TOTAL BILIRUBIN 0.6 mg/dL (0.0-1.0); TRIGLYCERIDES 53 mg/dL (30-150); UREA NITROGEN, BLOOD 15 mg/dL (8-21)
[2018-03-20 06:15] LABS: BASOPHILS % (AUTO) 0.2 % (0.0-2.0); EOSINOPHILS # (AUTO) 0.1 K/uL (0.0-0.4); EOSINOPHILS % (AUTO) 1.2 % (0.0-4.0); HEMATOCRIT 26.9 % (36-48); HEMOGLOBIN 9.2 g/dL (12.0-16.0); LYMPHOCYTES # (AUTO) 0.9 K/uL (1.0-5.5); LYMPHOCYTES % (AUTO) 13.7 % (20.5-51.5); MEAN CORPUSCULAR HEMOGLOBIN 33 pg (27-31); MEAN CORPUSCULAR HGB CONC 34 % (32-36); MEAN CORPUSCULAR VOLUME 96 fL (79.0-98.0); MONOCYTES # (AUTO) 0.8 K/uL (0.0-1.0); NEUTROPHILS # (AUTO) 5.1 K/uL (1.8-7.7); NEUTROPHILS % (AUTO) 73.9 % (40.0-70.0); PLATELET COUNT (AUTO) 433 K/uL (130-430); RED BLOOD CELL COUNT(AUTO) 2.82 MIL/uL (4.2-6.2); RED CELL DISTRIBUTION WIDTH 14.8 % (9.0-15.0); WHITE BLOOD COUNT (AUTO) 6.9 K/uL (4.8-10.8)
[2018-03-20] MEDS: OMEPRAZOLE 20 MG CAPSULE.DR (PriLOSEC) PO SCH ×4 (06:26→21:55)
[2018-03-20] MEDS: INSULIN REGULAR, HUMAN 100 UNITS/ML, 10 ML VIAL (novoLIN R) SUBCUT PRN ×2 (06:31→11:46)
[2018-03-20] MEDS: LORazepam 2 MG/ML VIAL IVP PRN (06:37)
[2018-03-20 07:07] LABS: ALANINE AMINOTRANSFERASE 6 U/L (12-78)
[2018-03-20 07:30] LABS: ERYTHROCYTE SEDIMENTATION RATE 60 MM/HR (0-20)
[2018-03-20] MEDS: metroNIDAZOLE 500 mg/NS 100 ML IV SCH ×2 (08:48→21:55)
[2018-03-20] MEDS: FUROSEMIDE 40 MG TABLET PO SCH (08:49)
[2018-03-20] MEDS: LISINOPRIL 20 MG TABLET PO SCH (08:49)
[2018-03-20] MEDS: CARVEDILOL 25 MG TABLET (COREG) PO SCH ×2 (08:50→21:55)
[2018-03-20] MEDS: POTASSIUM CHLORIDE 8 MEQ TABLET.SA PO SCH (08:50)
[2018-03-20] MEDS: MELOXICAM 7.5 MG TABLET PO SCH (08:50)
[2018-03-20] MEDS: ENOXAPARIN SODIUM 40 MG/0.4 ML SYRINGE SUBCUT SCH (08:51)
[2018-03-20] MEDS ORDERED: SODIUM ACETATE IV SCH ×9 (18:00)
[2018-03-20] MEDS: FAT EMULSIONS 250 ML IV SCH (18:00)
[2018-03-20] MEDS ORDERED: TPN PERIPHERAL IV SCH ×9 (18:00)
[2018-03-20] MEDS ORDERED: POTASSIUM CHLORIDE IV SCH ×9 (18:00)
[2018-03-20] MEDS ORDERED: [UNRECOGNIZED DRUG - OTHER] IV SCH ×9 (18:00)
[2018-03-21] MEDS: ONDANSETRON HCL 4 MG/2 ML VIAL IVP PRN (01:01)
[2018-03-21] MEDS: OMEPRAZOLE 20 MG CAPSULE.DR (PriLOSEC) PO SCH ×3 (06:00→16:47)
[2018-03-21 07:25] LABS: ALANINE AMINOTRANSFERASE 7 U/L (12-78); ALBUMIN 1.5 g/dL (3.4-4.8); ANION GAP 3 (5-15); ASPARTATE AMINOTRANSFERASE 23 U/L (10-37); CALCIUM 8.2 mg/dL (8.4-11.0); CHLORIDE 107 mmol/L (98-107); CREATININE 0.83 mg/dL (0.55-1.30); GLUCOSE 97 mg/dL (70-99); PHOSPHORUS 3.6 mg/dL (2.7-4.5); POTASSIUM 4.1 mmol/L (3.5-5.1); SODIUM SERUM 136 mmol/L (136-145); TOTAL BILIRUBIN 0.6 mg/dL (0.0-1.0); UREA NITROGEN, BLOOD 16 mg/dL (8-21)
[2018-03-21 07:49] VITALS: BP_SYST 136
[2018-03-21] MEDS: POTASSIUM CHLORIDE 8 MEQ TABLET.SA PO SCH (08:38)
[2018-03-21] MEDS: metroNIDAZOLE 500 mg/NS 100 ML IV SCH (08:38)
[2018-03-21] MEDS: FUROSEMIDE 40 MG TABLET PO SCH (08:39)
[2018-03-21] MEDS: LISINOPRIL 20 MG TABLET PO SCH (08:39)
[2018-03-21] MEDS: MELOXICAM 7.5 MG TABLET PO SCH (08:39)
[2018-03-21] MEDS: CARVEDILOL 25 MG TABLET (COREG) PO SCH (08:40)
[2018-03-21] MEDS: ENOXAPARIN SODIUM 40 MG/0.4 ML SYRINGE SUBCUT SCH (08:45)
[2018-03-21] MEDS: MORPHINE 4 MG/ML INJ. SYRINGE IVP PRN (09:43)
[2018-03-21 11:23] VITALS: BP_SYST 102
[2018-03-21 16:00] VITALS: BP_SYST 112
[2018-03-21] MEDS: HYDROcodone/ACETAMIN 5-325 MG TAB (NORCO/ VICODIN) PO PRN (16:48)
[2018-03-21 17:16] VITALS: BP_SYST 110
== END 2018-03-21 18:38 | DRG 853 ==
LOC: SED 09:42 → SMU 12:50 → SIC 22:45 → STU 03-16 11:18 → SMU 03-21 18:14
PROVIDERS: ADMIT Preventive Medicine Preventive Medicine/Occupational Environmental Medicine; ATTEND Preventive Medicine Preventive Medicine/Occupational Environmental Medicine
PROC: 0DJD4ZZ Inspection of Lower Intestinal Tract, Percutaneous Endoscopic Approach (ICD-10-PCS; 2018-03-14)
PROC: 0DQH0ZZ Repair Cecum, Open Approach (ICD-10-PCS; 2018-03-14)
PROC: 0DTJ0ZZ Resection of Appendix, Open Approach (ICD-10-PCS; principal; 2018-03-14 19:00)
PROC: 30233N1 Transfusion of Nonautologous Red Blood Cells into Peripheral Vein, Percutaneous Approach (ICD-10-PCS; 2018-03-15)
PROC: 3E0336Z Introduction of Nutritional Substance into Peripheral Vein, Percutaneous Approach (ICD-10-PCS; 2018-03-17)
DX: A41.9 Sepsis, unspecified organism (principal); K35.3 Acute appendicitis with localized peritonitis; K63.1 Perforation of intestine (nontraumatic); E43 Unspecified severe protein-calorie malnutrition; K56.7 Ileus, unspecified; R17 Unspecified jaundice; K56.609 Unspecified intestinal obstruction, unspecified as to partial versus complete obstruction; T81.31XA Disruption of external operation (surgical) wound, not elsewhere classified, initial encounter; K38.1 Appendicular concretions; M19.90 Unspecified osteoarthritis, unspecified site; D64.9 Anemia, unspecified; K57.30 Diverticulosis of large intestine without perforation or abscess without bleeding; E83.39 Other disorders of phosphorus metabolism; R73.9 Hyperglycemia, unspecified; E83.51 Hypocalcemia; J45.909 Unspecified asthma, uncomplicated; I25.10 Atherosclerotic heart disease of native coronary artery without angina pectoris; I10 Essential (primary) hypertension; E83.42 Hypomagnesemia; E83.52 Hypercalcemia; I25.2 Old myocardial infarction; Z90.710 Acquired absence of both cervix and uterus; Z95.810 Presence of automatic (implantable) cardiac defibrillator; Z88.0 Allergy status to penicillin; Z68.22 Body mass index [BMI] 22.0-22.9, adult; Z86.74 Personal history of sudden cardiac arrest; Z85.72 Personal history of non-Hodgkin lymphomas; Z79.899 Other long term (current) drug therapy; Y83.6 Removal of other organ (partial) (total) as the cause of abnormal reaction of the patient, or of later complication, without mention of misadventure at the time of the procedure; Y92.238 Other place in hospital as the place of occurrence of the external cause
CPT/HCPCS: 36415; 71045; 80048; 80053; 81000-TC; 82150-TC; 82962; 83690-TC; 83735-TC; 84100-TC; 84478-TC; 85007; 85025; 85027; 85610-TC; 85651-TC; 85730-TC; 86140; 86886; 86900; 86901; 86920; 87040-TC; 87081; 87086; 88304; 93005; 94010; 96365; 96367; 96375; 97110-GP; 97116-GP; 97530-GP; 99285; J0610; J1650; J1815; J1956; J2060; J2250; J2270; J2405; J2543; J2704; J2710; J3010; J3370; J3475; J3480; J3490; J7030; J7040; J7050; J7120; J7131; P9021; P9046

== ENCOUNTER 2018-08-09 12:15 | Inpatient (IN) | payer OTHER ==
[~2018-08-09] VITALS: Ht 167.6 cm; Wt 62.1 kg
[2018-08-09 12:21] VITALS: BP_SYST 125
[2018-08-09] MEDS ORDERED: NACL 0.9% 1,000 ML IV ONE (12:28)
[2018-08-09] MEDS ORDERED: ONDANSETRON HCL 4 MG/2 ML VIAL IVP ONE (12:30)
[2018-08-09] MEDS ORDERED: MORPHINE 4 MG/ML INJ. SYRINGE IVP ONE (12:30)
[2018-08-09 13:29] LABS: BASOPHILS % (AUTO) 0.3 % (0.0-2.0); EOSINOPHILS % (AUTO) 0.4 % (0.0-4.0); HEMATOCRIT 38.5 % (36-48); HEMOGLOBIN 12.9 g/dL (12.0-16.0); LYMPHOCYTES % (AUTO) 17.3 % (20.5-51.5); MEAN CORPUSCULAR HEMOGLOBIN 33 pg (27-31); MEAN CORPUSCULAR HGB CONC 34 % (32-36); MEAN CORPUSCULAR VOLUME 98 fL (79.0-98.0); MONOCYTES % (AUTO) 3.3 % (1.7-9.3); NEUTROPHILS # (AUTO) 3.9 K/uL (1.8-7.7); NEUTROPHILS % (AUTO) 78.7 % (40.0-70.0); PLATELET COUNT (AUTO) 229 K/uL (130-430); RED BLOOD CELL COUNT(AUTO) 3.94 MIL/uL (4.2-6.2); RED CELL DISTRIBUTION WIDTH 13.2 % (9.0-15.0)
[2018-08-09 13:30] LABS: LYMPHOCYTES # (AUTO) 0.9 K/uL (1.0-5.5); MONOCYTES # (AUTO) 0.2 K/uL (0.0-1.0)
[2018-08-09 13:33] LABS: CLARITY/URINE SLIGHTLY HAZY (CLEAR); COLOR,URINE YELLOW (YELLOW)
[2018-08-09 13:34] LABS: BILIRUBIN,URINE NEGATIVE (NEGATIVE); BLOOD, URINE TRACE (NEGATIVE); GLUCOSE,URINE 0 (NEGATIVE); KETONES,URINE TRACE (NEGATIVE); LEUKOCYTE ESTERASE ,URINE 1+ (NEGATIVE); NITRITE, URINE NEGATIVE (NEGATIVE); PROTEIN URINE 1+ (NEGATIVE); UROBILINOGEN,URINE 0.2 (0.2-1.0)
[2018-08-09 13:35] LABS: BACTERIA,URINE FEW /HPF (None Seen)
[2018-08-09 13:36] LABS: PROTHROMBIN TIME 10.6 SECS (9.5-12.5)
[2018-08-09 13:39] LABS: ANION GAP 8 (5-15); CHLORIDE 105 mmol/L (98-107); POTASSIUM 4.1 mmol/L (3.5-5.1); SODIUM SERUM 140 mmol/L (136-145)
[2018-08-09 13:40] LABS: ALANINE AMINOTRANSFERASE 9 U/L (12-78); ASPARTATE AMINOTRANSFERASE 15 U/L (10-37); CALCIUM 9.4 mg/dL (8.4-11.0); CREATININE 1.06 mg/dL (0.55-1.30); GLUCOSE 109 mg/dL (70-99); TOTAL BILIRUBIN 0.8 mg/dL (0.0-1.0); UREA NITROGEN, BLOOD 17 mg/dL (8-21)
[2018-08-09 13:41] LABS: ALBUMIN 3.5 g/dL (3.4-4.8); AMYLASE 151 U/L (0-100); LIPASE 917 U/L (73-393)
[2018-08-09] MEDS ORDERED: cefTRIAXone 1 GM IVPB PREMIX 50 ML IV ONE (15:15)
[2018-08-09] MEDS ORDERED: FURO-150 PO (15:56)
[2018-08-09] MEDS ORDERED: POTA8TAB4 PO (15:56)
[2018-08-09 16:50] VITALS: BP_SYST 123
[2018-08-09] MEDS: PIPERACILLIN/TAZO 3.375/DEX-IS 50 ML IV SCH (18:13)
[2018-08-09] MEDS ORDERED: MORPHINE 4 MG/ML INJ. SYRINGE IVP PRN (19:15)
[2018-08-09] MEDS ORDERED: ONDANSETRON HCL 4 MG/2 ML VIAL IVP PRN (19:15)
[2018-08-09 20:00] VITALS: BP_SYST 101
[2018-08-09] MEDS ORDERED: FAMOTIDINE 20 MG TABLET PO SCH (21:00)
[2018-08-09] MEDS ORDERED: KCL 10 mEq in 50 mL (PREMIX) 50 ML IV ONE (21:27)
[2018-08-09] MEDS: FAMOTIDINE 20 MG TABLET PO SCH (21:46)
[2018-08-09] MEDS: POTASSIUM CHLORIDE 10 MEQ in NACL 0.9% 1,000 ML IV SCH (21:47)
[2018-08-10] MEDS: PIPERACILLIN/TAZO 3.375/DEX-IS 50 ML IV SCH ×4 (00:29→17:54)
[2018-08-10 08:00] VITALS: BP_SYST 108
[2018-08-10 08:28] LABS: HEMATOCRIT 30.5 % (36-48); HEMOGLOBIN 10.1 g/dL (12.0-16.0); RED BLOOD CELL COUNT(AUTO) 3.09 MIL/uL (4.2-6.2); WHITE BLOOD COUNT (AUTO) 3.2 K/uL (4.8-10.8)
[2018-08-10 08:29] LABS: BASOPHILS % (AUTO) 0.4 % (0.0-2.0); EOSINOPHILS % (AUTO) 1.3 % (0.0-4.0); LYMPHOCYTES # (AUTO) 1.6 K/uL (1.0-5.5); LYMPHOCYTES % (AUTO) 48.1 % (20.5-51.5); MEAN CORPUSCULAR HEMOGLOBIN 33 pg (27-31); MEAN CORPUSCULAR HGB CONC 33 % (32-36); MEAN CORPUSCULAR VOLUME 99 fL (79.0-98.0); MONOCYTES # (AUTO) 0.3 K/uL (0.0-1.0); MONOCYTES % (AUTO) 9.3 % (1.7-9.3); NEUTROPHILS # (AUTO) 1.3 K/uL (1.8-7.7); NEUTROPHILS % (AUTO) 40.9 % (40.0-70.0); PLATELET COUNT (AUTO) 178 K/uL (130-430); RED CELL DISTRIBUTION WIDTH 13.3 % (9.0-15.0)
[2018-08-10] MEDS: CARVEDILOL 25 MG TABLET (COREG) PO SCH ×2 (08:58→17:53)
[2018-08-10] MEDS: FAMOTIDINE 20 MG TABLET PO SCH ×2 (08:58→22:00)
[2018-08-10] MEDS: POTASSIUM CHLORIDE 20 MEQ TAB.PRT.SR PO SCH (08:58)
[2018-08-10 08:59] LABS: ANION GAP 7 (5-15); CHLORIDE 108 mmol/L (98-107); GLUCOSE 78 mg/dL (70-99); POTASSIUM 3.8 mmol/L (3.5-5.1); SODIUM SERUM 142 mmol/L (136-145)
[2018-08-10] MEDS: FUROSEMIDE 40 MG TABLET PO SCH (08:59)
[2018-08-10 09:00] LABS: CALCIUM 8.4 mg/dL (8.4-11.0); CREATININE 1.02 mg/dL (0.55-1.30); UREA NITROGEN, BLOOD 12 mg/dL (8-21)
[2018-08-10] MEDS: LISINOPRIL 20 MG TABLET PO SCH (09:00)
[2018-08-10 09:01] LABS: ALANINE AMINOTRANSFERASE 7 U/L (12-78); ALBUMIN 2.6 g/dL (3.4-4.8); AMYLASE 72 U/L (0-100); ASPARTATE AMINOTRANSFERASE 15 U/L (10-37); LIPASE 106 U/L (73-393); TOTAL BILIRUBIN 0.9 mg/dL (0.0-1.0)
[2018-08-10 12:19] VITALS: BP_SYST 106
[2018-08-10 16:52] VITALS: BP_SYST 114
[2018-08-10] MEDS: ACETAMINOPHEN 325 MG TABLET PO PRN (17:53)
[2018-08-10] MEDS: FUROSEMIDE 20 MG TABLET PO SCH (17:57)
[2018-08-10] MEDS: POTASSIUM CHLORIDE 10 MEQ in NACL 0.9% 1,000 ML IV SCH (18:59)
[2018-08-10 20:00] VITALS: BP_SYST 98
[2018-08-11 02:54] VITALS: BP_SYST 133
[2018-08-11] MEDS: PIPERACILLIN/TAZO 3.375/DEX-IS 50 ML IV SCH ×5 (05:49→23:31)
[2018-08-11] MEDS: FAMOTIDINE 20 MG TABLET PO SCH ×2 (07:59→21:40)
[2018-08-11] MEDS: CARVEDILOL 25 MG TABLET (COREG) PO SCH ×2 (07:59→17:17)
[2018-08-11] MEDS: FUROSEMIDE 40 MG TABLET PO SCH (07:59)
[2018-08-11 08:00] VITALS: BP_SYST 132
[2018-08-11] MEDS: POTASSIUM CHLORIDE 20 MEQ TAB.PRT.SR PO SCH (08:00)
[2018-08-11] MEDS: LISINOPRIL 20 MG TABLET PO SCH (08:00)
[2018-08-11 12:40] VITALS: BP_SYST 104
[2018-08-11] MEDS: ACETAMINOPHEN 325 MG TABLET PO PRN (15:28)
[2018-08-11] MEDS: POTASSIUM CHLORIDE 10 MEQ in NACL 0.9% 1,000 ML IV SCH (16:38)
[2018-08-11 16:42] VITALS: BP_SYST 98
[2018-08-11 17:15] VITALS: BP_SYST 122
[2018-08-11] MEDS: FUROSEMIDE 20 MG TABLET PO SCH (17:18)
[2018-08-11 20:00] VITALS: BP_SYST 117
[2018-08-12] VITALS: BP_SYST 114
[2018-08-12] MEDS: PIPERACILLIN/TAZO 3.375/DEX-IS 50 ML IV SCH ×3 (05:34→17:04)
[2018-08-12 07:39] LABS: BASOPHILS % (AUTO) 0.5 % (0.0-2.0); EOSINOPHILS % (AUTO) 2.7 % (0.0-4.0); HEMATOCRIT 31.3 % (36-48); HEMOGLOBIN 10.2 g/dL (12.0-16.0); LYMPHOCYTES # (AUTO) 1.4 K/uL (1.0-5.5); LYMPHOCYTES % (AUTO) 44.2 % (20.5-51.5); MEAN CORPUSCULAR HEMOGLOBIN 33 pg (27-31); MEAN CORPUSCULAR HGB CONC 33 % (32-36); MEAN CORPUSCULAR VOLUME 100 fL (79.0-98.0); MONOCYTES % (AUTO) 9.9 % (1.7-9.3); NEUTROPHILS # (AUTO) 1.3 K/uL (1.8-7.7); NEUTROPHILS % (AUTO) 42.7 % (40.0-70.0); PLATELET COUNT (AUTO) 164 K/uL (130-430); RED BLOOD CELL COUNT(AUTO) 3.14 MIL/uL (4.2-6.2); RED CELL DISTRIBUTION WIDTH 12.9 % (9.0-15.0)
[2018-08-12 07:40] LABS: EOSINOPHILS # (AUTO) 0.1 K/uL (0.0-0.4); MONOCYTES # (AUTO) 0.3 K/uL (0.0-1.0); WHITE BLOOD COUNT (AUTO) 3.1 K/uL (4.8-10.8)
[2018-08-12 07:41] LABS: ANION GAP 10 (5-15); CHLORIDE 107 mmol/L (98-107); GLUCOSE 84 mg/dL (70-99); POTASSIUM 3.1 mmol/L (3.5-5.1); SODIUM SERUM 143 mmol/L (136-145)
[2018-08-12 07:42] LABS: CALCIUM 8.5 mg/dL (8.4-11.0); CREATININE 1.01 mg/dL (0.55-1.30); UREA NITROGEN, BLOOD 10 mg/dL (8-21)
[2018-08-12 08:04] VITALS: BP_SYST 123
[2018-08-12] MEDS: FUROSEMIDE 40 MG TABLET PO SCH (08:21)
[2018-08-12] MEDS: FAMOTIDINE 20 MG TABLET PO SCH (08:21)
[2018-08-12] MEDS: LISINOPRIL 20 MG TABLET PO SCH (08:22)
[2018-08-12] MEDS: POTASSIUM CHLORIDE 20 MEQ TAB.PRT.SR PO SCH (08:22)
[2018-08-12] MEDS: CARVEDILOL 25 MG TABLET (COREG) PO SCH ×2 (08:22→17:03)
[2018-08-12] MEDS ORDERED: POTASSIUM CHLORIDE 20 MEQ TAB.PRT.SR PO ONE (11:30)
[2018-08-12 12:36] VITALS: BP_SYST 108
[2018-08-12] MEDS: POTASSIUM CHLORIDE 10 MEQ in NACL 0.9% 1,000 ML IV SCH (13:51)
[2018-08-12] MEDS: FUROSEMIDE 20 MG TABLET PO SCH (17:04)
[2018-08-12 17:10] VITALS: BP_SYST 131
[2018-08-12] MEDS ORDERED: METR500T PO ×2 (19:14→19:41)
[2018-08-12] MEDS ORDERED: FAMO10TA41 PO (19:26)
[2018-08-12] MEDS ORDERED: SACC250C3 PO (19:26)
[2018-08-12 19:30] VITALS: BP_SYST 118
== END 2018-08-12 20:00 | disposition home or self-care (01) | DRG 391 ==
LOC: SED 12:15 → STU 15:42 → SMU 16:55 → STU 17:08
PROVIDERS: ADMIT Internal Medicine; ATTEND Family Medicine
DX: K57.92 Diverticulitis of intestine, part unspecified, without perforation or abscess without bleeding (principal); E43 Unspecified severe protein-calorie malnutrition; N39.0 Urinary tract infection, site not specified; K56.600 Partial intestinal obstruction, unspecified as to cause; D64.9 Anemia, unspecified; I25.10 Atherosclerotic heart disease of native coronary artery without angina pectoris; I11.0 Hypertensive heart disease with heart failure; I25.5 Ischemic cardiomyopathy; I50.9 Heart failure, unspecified; Z60.2 Problems related to living alone; N73.6 Female pelvic peritoneal adhesions (postinfective); Z85.72 Personal history of non-Hodgkin lymphomas; Z86.74 Personal history of sudden cardiac arrest; Z90.49 Acquired absence of other specified parts of digestive tract; I25.2 Old myocardial infarction; Z95.810 Presence of automatic (implantable) cardiac defibrillator; Z88.0 Allergy status to penicillin; Z68.22 Body mass index [BMI] 22.0-22.9, adult
CPT/HCPCS: 36415; 71045; 80048; 80053; 81000-TC; 82150-TC; 82550-TC; 83605; 83690-TC; 83735-TC; 83880; 84100-TC; 84484; 85025; 85610-TC; 85730-TC; 87040-TC; 87086; 93005; 96361; 96365; 96375; 99285; G0378; J0696; J2270; J2405; J2543; J3480; J7030; J7060

== ENCOUNTER 2019-01-29 11:41 | Inpatient (IN) | payer OTHER ==
[~2019-01-29] VITALS: Ht 152.4 cm; Wt 65.3 kg
[2019-01-29 11:41] VITALS: BP_SYST 140
[~2019-01-29 11:41] MED LIST changes: +FAMO10TA41 PO; +FURO-150 PO; -MELO15TA13 PO; +METR500T PO; -OMEP40CA33 PO; +SACC250C3 PO
--- NOTE | 2019-01-29 11:41 | NUR ---
BROUGHT BACK TO BED #7 AND TRIAGED. REPORT GIVEN TO FISH
--- NOTE | 2019-01-29 11:42 | NUR ---
Pt brought by self, A&Ox4, pt presents to ER with abdominal pain, nausea and vomiting, pt states she is taking Flagyl and Cipro for dicerticulitis, skin pink and warm, cap refill <3, VSS.
[2019-01-29] MEDS ORDERED: KETOROLAC TROMETHAMINE 15 MG VIAL IVP ONE (12:15)
[2019-01-29] MEDS ORDERED: ONDANSETRON HCL 4 MG/2 ML VIAL IVP ONE (12:15)
--- NOTE | 2019-01-29 12:16 | NUR ---
# 20 gauge angiocath placed to LAC. Use of asceptic technique. Opsite placed over site. Blood return noted. Flushed with 10 cc of normal saline. No evidence of infiltration noted. Patient tolerated well. Patient given nausea and pain medication. Will continue to follow up.
[2019-01-29 12:49] LABS: ANION GAP 9 (5-15); CALCIUM 9.7 mg/dL (8.4-11.0); CHLORIDE 105 mmol/L (98-107); CREATININE 1.23 mg/dL (0.55-1.30); GLUCOSE 104 mg/dL (70-99); POTASSIUM 3.9 mmol/L (3.5-5.1); SODIUM SERUM 143 mmol/L (136-145); UREA NITROGEN, BLOOD 12 mg/dL (8-21)
[2019-01-29 12:50] LABS: BASOPHILS % (AUTO) 0.4 % (0.0-2.0); EOSINOPHILS % (AUTO) 1.3 % (0.0-4.0); HEMATOCRIT 37.4 % (36-48); HEMOGLOBIN 12.3 g/dL (12.0-16.0); LYMPHOCYTES # (AUTO) 1.1 K/uL (1.0-5.5); LYMPHOCYTES % (AUTO) 30.6 % (20.5-51.5); MEAN CORPUSCULAR HEMOGLOBIN 32 pg (27-31); MEAN CORPUSCULAR HGB CONC 33 % (32-36); MEAN CORPUSCULAR VOLUME 98 fL (79.0-98.0); MONOCYTES # (AUTO) 0.3 K/uL (0.0-1.0); MONOCYTES % (AUTO) 8.6 % (1.7-9.3); NEUTROPHILS # (AUTO) 2.1 K/uL (1.8-7.7); NEUTROPHILS % (AUTO) 59.1 % (40.0-70.0); PLATELET COUNT (AUTO) 180 K/uL (130-430); RED CELL DISTRIBUTION WIDTH 13.1 % (9.0-15.0); WHITE BLOOD COUNT (AUTO) 3.6 K/uL (4.8-10.8)
[2019-01-29 12:57] LABS: ALANINE AMINOTRANSFERASE 12 U/L (12-78); ALBUMIN 3.3 g/dL (3.4-4.8); ASPARTATE AMINOTRANSFERASE 17 U/L (10-37); LIPASE 98 U/L (73-393); TOTAL BILIRUBIN 1.1 mg/dL (0.0-1.0)
--- NOTE | 2019-01-29 13:47 | NUR ---
DR MONTERO SPEAKING WITH DR PATEL
--- NOTE | 2019-01-29 14:37 | NUR ---
# 16 FR NG tube placed to right nare. Placement checked by auscultation of instilled air into stomach and auscultation. Tubing taped in place to prevent dislodging. Patient tolerated well.
[2019-01-29] MEDS ORDERED: CIPR500S2 PO (14:55)
--- NOTE | 2019-01-29 14:55 | NUR ---
Medication reconciliation completed with information provided by patient. Any prior medication reconciliation on file was reviewed and corrected.
--- NOTE | 2019-01-29 15:00 | NUR ---
Patient will be admitted to care of Dr Egan . Admitted to Medsurg unit. Will go to room 119A. Belongings list completed. Summary report printed. Report will be given at bedside.
--- NOTE | 2019-01-29 15:01 | NUR ---
ADMISSION NOTE Received patient from ER via David. Patient admitted with diagnosis of BOWEL OBSTRUCTION. Patient oriented to hospital routine, call light, toileting and safety-patient verbalized understanding. Addendum: 01/29/19 at 1515 by Iliana Vail RN With NGT Connected patient to low intermittent suction with greenish drainage , denies any abdominal pain.
[2019-01-29 15:16] VITALS: BP_SYST 138
--- NOTE | 2019-01-29 15:35 | NUR ---
CONSULTATION PAGED REASON FOR CONSULTATION:BOWEL OBSTRUCTION WAS CONSULT CALLED?Y PERSON WHO WAS NOTIFIED:GOLD CONSULTING PHYSICIAN:VIJAY LEYVA MUD JACK NOZZLEMAN SPECIALTY:SURGEON MUD JACK NOZZLEMAN PHONE NUMBER:[phone] REQUESTING PHYSICIAN:ARUN ARCHIBALD
--- NOTE | 2019-01-29 15:52 | NUR ---
Spoke to DR. Aquino regarding surgical consult , result of labs /CT scan, treatment , he will come to see the patient tonight.
[2019-01-29 16:00] VITALS: BP_SYST 138
--- NOTE | 2019-01-29 16:00 | NUR ---
Rounds Patient is currently c/o of abd pain 10/11. NGT is to low-intermittent suction. Drainage is dark green. BS are audible in all four quadrants. Abd is soft to palpation. IV is on the LAC 20g running D51/2NS+20KCl@100. Call light is within reach and bed is in the lowest position. Will continue to monitor.
--- NOTE | 2019-01-29 16:05 | NUR ---
MD rounds Dr. Johnson is examining the patient at the bedside.
[2019-01-29] MEDS: KCL 20 mEq in D5/0.45NS 1000mL 1,000 ML IV SCH (16:12)
[2019-01-29] MEDS ORDERED: ZOLP5TAB2 PO (16:22)
--- NOTE | 2019-01-29 18:33 | NUR ---
Closing Note Patient is awake and resting in bed. NGT is to low intermittent suction. Patient is tolerating well. Consult with Dr. Aquino is pending.
[2019-01-29 20:00] VITALS: BP_SYST 113
[2019-01-29] MEDS: PANTOPRAZOLE SODIUM 40 MG/VIAL (PROTONIX) IVP SCH (20:42)
[2019-01-29] MEDS: ENOXAPARIN SODIUM 40 MG/0.4 ML SYRINGE SUBCUT SCH (20:45)
--- NOTE | 2019-01-29 21:34 | NUR ---
PAGED: PAGED DR. PATEL. SPOKE WITH KIMMIE
[2019-01-29] MEDS ORDERED: HYDROmorphone 1 MG INJ. 1 MG/ML AMPUL IVP PRN (21:45)
--- NOTE | 2019-01-29 21:45 | NUR ---
DR. PATEL PAGED AND TALKED TO DR. PATEL, PATIENT C/O ABDOMINAL PAIN, 8/10 PAIN SCALE. DILAUDID 1 MG Q 4HRS PRN ORDERED, ENTERED AND CARRIED OUT. WILL CONTINUE TO MONITOR.
[2019-01-29] MEDS: metroNIDAZOLE 500 mg/NS 100 ML IV SCH (22:17)
[2019-01-29 23:23] VITALS: BP_SYST 111
--- NOTE | 2019-01-30 00:05 | NUR ---
DR. AMANDA PATEL CALLED WITH NEW ORDER TO CHANGE THE PATIENT TO TELEMETRY.
--- NOTE | 2019-01-30 02:13 | NUR ---
ROUNDS PATIENT ASLEEP, NO SOB NOTED, RESPIRATIONS EVEN AND UNLABORED. WILL CONTINUE TO MONITOR.
--- NOTE | 2019-01-30 04:12 | NUR ---
PATIENT RESTING: Patient resting quietly. No acute distress noted. Vital signs within normal range.
[2019-01-30] MEDS: metroNIDAZOLE 500 mg/NS 100 ML IV SCH ×3 (05:12→21:54)
[2019-01-30] MEDS: KCL 20 mEq in D5/0.45NS 1000mL 1,000 ML IV SCH ×4 (05:15→21:45)
--- NOTE | 2019-01-30 05:49 | NUR ---
CLOSING NOTES PATIENT AWAKE, VITALS STABLE, DENIES ANY PAIN AT THIS TIME. ALL NEEDS ATTENDED TO. NG TUBE PATENT WITH GREENISH OUTPUT. SAFETY AND FALL MEASURES MAINTAINED. CALL LIGHT PLACED WITHIN REACH.
[2019-01-30 06:24] LABS: BASOPHILS % (AUTO) 0.4 % (0.0-2.0); EOSINOPHILS % (AUTO) 0.4 % (0.0-4.0); HEMOGLOBIN 11.1 g/dL (12.0-16.0); LYMPHOCYTES # (AUTO) 0.6 K/uL (1.0-5.5); LYMPHOCYTES % (AUTO) 24.1 % (20.5-51.5); MEAN CORPUSCULAR HEMOGLOBIN 32 pg (27-31); MEAN CORPUSCULAR HGB CONC 33 % (32-36); MEAN CORPUSCULAR VOLUME 99 fL (79.0-98.0); MONOCYTES # (AUTO) 0.2 K/uL (0.0-1.0); MONOCYTES % (AUTO) 7.6 % (1.7-9.3); NEUTROPHILS # (AUTO) 1.8 K/uL (1.8-7.7); PLATELET COUNT (AUTO) 157 K/uL (130-430); RED BLOOD CELL COUNT(AUTO) 3.45 MIL/uL (4.2-6.2); RED CELL DISTRIBUTION WIDTH 12.7 % (9.0-15.0); WHITE BLOOD COUNT (AUTO) 2.6 K/uL (4.8-10.8)
[2019-01-30 06:43] LABS: ANION GAP 4 (5-15); CHLORIDE 107 mmol/L (98-107); CREATININE 1.18 mg/dL (0.55-1.30); GLUCOSE 161 mg/dL (70-99); POTASSIUM 4.1 mmol/L (3.5-5.1); SODIUM SERUM 139 mmol/L (136-145); UREA NITROGEN, BLOOD 15 mg/dL (8-21)
[2019-01-30 08:05] VITALS: BP_SYST 101
--- NOTE | 2019-01-30 08:05 | NUR ---
OPENING NOTE patient resting in bed A&O x4, patient denies any acute distress or pain at this time, NGT with low intermittent suction in place with dark green drainage, educated patient on plan of care and call light system, will continue to monitor, safety precautions in place, call light within reach.
[2019-01-30 08:09] LABS: NEUTROPHILS % (AUTO) 67.5 % (40.0-70.0)
[2019-01-30] MEDS: PANTOPRAZOLE SODIUM 40 MG/VIAL (PROTONIX) IVP SCH ×3 (08:46→20:54)
--- NOTE | 2019-01-30 09:49 | NUR ---
Nutrition Update Jose Scale 18 noted. Pt admitted for bowel obstruction. Diet: N/A BMI: 28.1 kg/m2 RD to follow per nutrition care standards.
--- NOTE | 2019-01-30 10:17 | NUR ---
NOTES / MD rounds patient resting in bed watching tv, Dr. Johnson assessed patient at this time, MD stated it is ok for her to have ice chips, patient denies any acute distress or pain, breathing is even and unlabored on room, NGT in place, will continue to monitor, safety precautions in place, call light within reach.
[2019-01-30 11:20] VITALS: BP_SYST 133
--- NOTE | 2019-01-30 12:08 | NUR ---
NOTES patient is resting in bed talking to friend, no acute distress or pain noted at this time, NGT in place, NPO status in place, breathing is even and unlabored on room air, IVF infusing as ordered, will continue to monitor, safety precautions in place, call light within reach.
--- NOTE | 2019-01-30 14:11 | NUR ---
NOTES patient is resting in bed watching tv, patient denies any acute distress or pain at this time, patient breathing is even and unlabored on room air, IVF infusing as ordered, NGT in place with low intermittent suction, will continue to monitor, safety precautions in place, call light within reach.
[2019-01-30 15:46] VITALS: BP_SYST 136
--- NOTE | 2019-01-30 16:20 | NUR ---
NOTES patient is resting in bed watching tv, NGT in place with low intermittent suction, patient denies any acute distress or pain at this time, breathing is even and unlabored on room air, will continue to monitor, safety precautions in place, call light within reach.
--- NOTE | 2019-01-30 18:43 | NUR ---
CLOSING NOTE patient is resting in be A&O x4, daughter is at bedside, patient denies any acute distress or pain, breathing is even and unlabored on room air, IVF infusing as ordered, all needs were met throughout shift, NGT in place on low intermittent suction, will endorse report to oncoming nurse, safety precautions in place, call light within reach.
--- NOTE | 2019-01-30 20:00 | NUR ---
Initial note: Received report from dayshift RN. Patient is awake in bed, no distress noted. Alert and oriented x4, tolerating room air. IV site is patent and benign, receiving IV fluids well. NG tube to LIS in place with 1100 ML of green drainage. Call light with patient. Safety, fall precautions in place. Will continue with plan of care.
[2019-01-30 20:15] VITALS: BP_SYST 116
[2019-01-30] MEDS: ENOXAPARIN SODIUM 40 MG/0.4 ML SYRINGE SUBCUT SCH (20:56)
--- NOTE | 2019-01-30 23:32 | NUR ---
Rounds: Patient is sleeping in bed, no acute distress. IV fluids infusing well. Respirations are even and unlabored on room air. NG tube to LIS patent and intact. Call light with patient. Will continue to monitor patient.
[2019-01-31 04:20] VITALS: BP_SYST 110
--- NOTE | 2019-01-31 04:33 | NUR ---
Rounds: Patient is sleeping, no acute distress. Tolerating room air. IV fluids infusing well. NG tube to LIS in place. Call light with patient. Safety, fall precautions in place. Will continue monitoring.
[2019-01-31] MEDS: metroNIDAZOLE 500 mg/NS 100 ML IV SCH ×3 (05:17→21:29)
--- NOTE | 2019-01-31 06:53 | NUR ---
Closing note: Patient is awake in bed, no acute distress. Even and unlabored breathing on room air. IV fluids infusing well. NGT is intact and patent, draining green output to LIS. All needs met. Safety, fall precautions in place. Will endorse to dayshift RN.
--- NOTE | 2019-01-31 07:25 | NUR ---
AM ROUNDS: PATIENT AWAKE DURING ROUNDS.RECEIVED REPORT FROM JUAN CARLOS.PATIENT IS CONNECTED TO LOW INTERMITTENT SUCTION,GREENISH DISCHARGES IN THE CANISTER NOTED. NOT IN ANY DISTRESS. BED ALARM ON. CALL LIGHT WITH IN REACH. BED LOCKED AT LOWEST POSITION.
[2019-01-31 07:56] VITALS: BP_SYST 136
[2019-01-31] MEDS ORDERED: GASTROGRAFIN 120 ML ONE ×3 (08:30→11:04)
--- NOTE | 2019-01-31 08:40 | NUR ---
KUB: KUB WITH GASTROGRAFIN DONE AT THE BEDSIDE. STABLE. Addendum: 01/31/19 at 1825 by Marybeth Reynoso RN CORRECTED ABOVE TEST : SMALL BOWEL FOLLOW THROUGH RIGHT TEST.
[2019-01-31] MEDS: KCL 20 mEq in D5/0.45NS 1000mL 1,000 ML IV SCH ×2 (08:41→17:36)
[2019-01-31] MEDS: PANTOPRAZOLE SODIUM 40 MG/VIAL (PROTONIX) IVP SCH (08:41)
--- NOTE | 2019-01-31 11:20 | NUR ---
RN ROUNDS: AARON ON GOING. NGCed SANDHU TO LIS STOPPED WHILE AARON IS ON GOING PER TECH. Addendum: 01/31/19 at 1825 by Marybeth eRynoso RN CORRECTED ABOVE NOTES: SMALL BOWEL FOLLOW THROUGH CORRECT TEST.
[2019-01-31 12:38] VITALS: BP_SYST 157
--- NOTE | 2019-01-31 12:46 | NUR ---
RN ROUNDS: NOT IN ANY DISTRESS. CONTINUE TO MONITOR.
[2019-01-31] MEDS: ONDANSETRON HCL 4 MG/2 ML VIAL IVP PRN ×2 (13:32→19:17)
--- NOTE | 2019-01-31 13:43 | NUR ---
VOMITING: Vomited 1000 ml of bile green emesis, medicated with zofran 4 mg IVP. Aspiration precaution maintained.
--- NOTE | 2019-01-31 14:42 | NUR ---
RN ROUNDS: AARON NOT DONE YET.WAITING FOR TECH TO FINISH THE TEST,SO WE CAN CONNECT THE NGT TO LIS.PATIENT STATED FELT LITTLE BETTER. Addendum: 01/31/19 at 1826 by Marybeth Reynoso RN CORRECTED ABOVE NOTES: SMALL BOWEL FOLLOW THROUGH-CORRECT TEST.
[2019-01-31 16:05] VITALS: BP_SYST 123
--- NOTE | 2019-01-31 16:30 | NUR ---
Rn Rounds: Patient still nauseous and sbft not done yet, contrast slow to go down,will call surgeon.
--- NOTE | 2019-01-31 16:53 | NUR ---
Surgeon called: Dr. Aquino spoke with Iliana regarding patient still c/o nausea with orders give Tigan 200mg im x 1 dose.
[2019-01-31] MEDS ORDERED: TRIMETHOBENZAMIDE HCL 200 MG/2 ML VIAL IM ONE (17:00)
[2019-01-31] MEDS ORDERED: PROCHLORPERAZINE EDISYLATE 10 MG/2 ML VIAL IVP ONE (17:15)
--- NOTE | 2019-01-31 17:22 | NUR ---
NAUSEA/VOMITING: TIGAN NOT AVAILABLE IN THE PHARMACY,PRACHI CALLED DR ZAMUDIO WITH NEW ORDERS,GIVE COMPAZINE 5MG SLOW IVP X 1 DOSE,GIVEN ORDERED,WITH NO PROBLEM.
--- NOTE | 2019-01-31 18:21 | NUR ---
END OF SHIFT: SKIN PILER POOJA EXPLAINED TO PATIENT THAT SBFT NOT DONE YET,NEEDS TO HAVE ANOTHER X-RAY LATER TONIGHT AND ANOTHER ONE IN THE MORNING DUE TO CONTRAST SLOW TO GO DOWN PER RADIOLOGIST.PATIENT UNDERSTANDS THE INSTRUCTIONS.NGT RIGHT NARES CLAMPED UNTIL TEST IS DONE PER SKIN PILER.PATIENT FELT A LITTLE BETTER THIS TIME. CALL LIGHT WITH IN REACH. BED LOCKED AT LOWEST POSITION. BED ALARM ON. CONDITION GUARDED.
--- NOTE | 2019-01-31 19:09 | NUR ---
Initial note: Received report from dayshift RN. Patient is awake in bed, no acute distress. Family at bedside. Patient is alert and oriented x4. Even and unlabored breathing on room air. IV site to left AC is patent and benign, receiving fluids well. NGT in place, no suction applied as SBFT is in progress. Call light with patient. Safety, fall precautions in place. Will continue monitoring.
--- NOTE | 2019-01-31 19:22 | NUR ---
Nausea/vomiting: Patient vomited 500 ML of green emesis. Administered PRN Zofran as ordered for nausea and vomiting via left AC IV site. Replaced soiled blanket. Call light with patient. Will continue to monitor.
[2019-01-31 20:00] VITALS: BP_SYST 136
[2019-01-31] MEDS: ENOXAPARIN SODIUM 40 MG/0.4 ML SYRINGE SUBCUT SCH (21:30)
--- NOTE | 2019-01-31 22:06 | NUR ---
SBFT: automotive diagnostic technician at bedside for SBFT. Patient denies nausea at this time. Will continue monitoring.
[2019-02-01 00:24] VITALS: BP_SYST 107
[2019-02-01] MEDS: ONDANSETRON HCL 4 MG/2 ML VIAL IVP PRN (01:11)
--- NOTE | 2019-02-01 01:32 | NUR ---
Nausea/vomiting: Patient is complaining of nausea. Administered PRN Zofran as ordered via left AC IV site. Education provided regarding indications/side effects. Call light with patient. Will continue to monitor.
[2019-02-01] MEDS: KCL 20 mEq in D5/0.45NS 1000mL 1,000 ML IV SCH ×3 (04:38→21:28)
--- NOTE | 2019-02-01 04:50 | NUR ---
Rounds: Patient is sleeping, no distress noted. Even and unlabored breathing on room air. NGT in place. IV fluids infusing well. Call light with patient. Will continue to monitor.
[2019-02-01] MEDS: metroNIDAZOLE 500 mg/NS 100 ML IV SCH ×3 (06:18→21:28)
--- NOTE | 2019-02-01 06:52 | NUR ---
Closing note: Patient is awake in bed, no complaints of pain or nausea. Ciaran simmons completed this morning's SBFT x-ray. Resumed NGT LIS. IV fluids infusing well. All needs met. Safety, fall precautions in place. Will endorse to dayshift RN.
[2019-02-01 08:00] VITALS: BP_SYST 118
--- NOTE | 2019-02-01 08:00 | NUR ---
initial notes rec patient awake with hob elevated. ivf infusing well on the l ac. no infiltration oted. resp easy and unlabored. no osb noted. bed to the lowest position and siderails up and locked.
--- NOTE | 2019-02-01 09:10 | NUR ---
PAGED DR. ZAMUDIO ABOUT THE PATIENT. I SPOKE WITH MARTIN. DR. ZAMUDIO CALLED BACK.
[2019-02-01] MEDS: PANTOPRAZOLE SODIUM 40 MG/VIAL (PROTONIX) IVP SCH (09:33)
--- NOTE | 2019-02-01 10:00 | NUR ---
rounds npo maintianed for sx at 12noon. no sob noted. family at bedside. resitng comfortably. ngt connected to low intermittent suction with large amount of greenish drainage.
[2019-02-01 11:45] LABS: BASOPHILS % (AUTO) 0.9 % (0.0-2.0); EOSINOPHILS % (AUTO) 0.2 % (0.0-4.0); HEMOGLOBIN 11.9 g/dL (12.0-16.0); LYMPHOCYTES # (AUTO) 1.1 K/uL (1.0-5.5); LYMPHOCYTES % (AUTO) 19.4 % (20.5-51.5); MEAN CORPUSCULAR HEMOGLOBIN 33 pg (27-31); MEAN CORPUSCULAR HGB CONC 33 % (32-36); MEAN CORPUSCULAR VOLUME 98 fL (79.0-98.0); MONOCYTES # (AUTO) 0.4 K/uL (0.0-1.0); NEUTROPHILS # (AUTO) 4.1 K/uL (1.8-7.7); NEUTROPHILS % (AUTO) 72.5 % (40.0-70.0); PLATELET COUNT (AUTO) 178 K/uL (130-430); RED BLOOD CELL COUNT(AUTO) 3.66 MIL/uL (4.2-6.2); RED CELL DISTRIBUTION WIDTH 12.6 % (9.0-15.0); WHITE BLOOD COUNT (AUTO) 5.6 K/uL (4.8-10.8)
[2019-02-01 11:55] LABS: ANION GAP 5 (5-15); CALCIUM 9.2 mg/dL (8.4-11.0); CHLORIDE 107 mmol/L (98-107); CREATININE 1.06 mg/dL (0.55-1.30); GLUCOSE 126 mg/dL (70-99); POTASSIUM 3.7 mmol/L (3.5-5.1); SODIUM SERUM 139 mmol/L (136-145); UREA NITROGEN, BLOOD 8 mg/dL (8-21)
[2019-02-01 12:02] LABS: INR 1.2 (0.8-1.2); PROTHROMBIN TIME 11.7 SECS (9.5-12.5)
--- NOTE | 2019-02-01 12:02 | NUR ---
rounds dr feng was called for consult and ordered echo- cardio. npo maintained on this patient.
[2019-02-01 12:23] VITALS: BP_SYST 127
[2019-02-01] MEDS ORDERED: ROCURONIUM BROMIDE 10 MG/ML (ZEMURON) IV ONE (12:45)
[2019-02-01] MEDS ORDERED: metroNIDAZOLE 500 mg/NS 100 mL IVPB IV ONE (12:45)
[2019-02-01] MEDS ORDERED: LEVOFLOXACIN 500 MG/D5W 100 ML PIGGYBACK IV ONE (12:45)
[2019-02-01] MEDS ORDERED: SUGAMMADEX SODIUM 200 MG/2 ML VIAL IV ONE (12:45)
[2019-02-01] MEDS ORDERED: SEVOFLURANE 15 MIN GAS INH ONE (12:45)
[2019-02-01] MEDS ORDERED: PROPOFOL 200MG/ 20ML VIAL (DIPRIVAN) IV ONE (12:45)
[2019-02-01] MEDS ORDERED: LR 1,000 ML IV.SOLN IV ONE (12:45)
[2019-02-01] MEDS ORDERED: ONDANSETRON HCL 4 MG/2 ML VIAL IVP ONE (12:45)
[2019-02-01] MEDS ORDERED: MIDAZOLAM HCL 5 MG/5 ML VIAL IVP ONE (12:45)
[2019-02-01] MEDS ORDERED: fentaNYL CITRATE 250 MCG/5 ML AMP IV ONE (12:45)
--- NOTE | 2019-02-01 12:45 | NUR ---
rounds seen by dr grady and dr feng at bedside.
--- NOTE | 2019-02-01 12:47 | NUR ---
rounds was taken to sx via bed. no sob noted, accompanied by family members.
--- NOTE | 2019-02-01 13:53 | NUR ---
CONSULT REASON FOR CONSULT: CLEAR FOR SX DR. MEDEIROS WAS AT BEDSIDE AND SAW THE PATIENT.
[2019-02-01] MEDS ORDERED: MORPHINE 4 MG/ML INJ. SYRINGE IVP PRN ×3 (14:00)
[2019-02-01] MEDS ORDERED: METOCLOPRAMIDE HCL 10 MG/2 ML VIAL IVP PRN (14:00)
[2019-02-01] MEDS ORDERED: ENOXAPARIN SODIUM 40 MG/0.4 ML SYRINGE SUBCUT ONE (14:15)
[2019-02-01] MEDS ORDERED: ONDANSETRON HCL 4 MG/2 ML VIAL IVP PRN (14:15)
[2019-02-01] MEDS ORDERED: MORPHINE 4 MG/ML INJ. SYRINGE ONE (14:49)
--- NOTE | 2019-02-01 15:32 | NUR ---
rounds pt back from sx s/p exp lap and release of bowel obstruction and lysis of adhesions. awake alert with family at bedside. abdominal dressing dry and intact. no bleeding noted.
[2019-02-01 16:30] VITALS: BP_SYST 135
--- NOTE | 2019-02-01 19:20 | NUR ---
OPENING NOTES Bedside report received from dayshift nurse. Patient received lying in bed, talking to family members at bedside. AOx4, no s/s of acute distress, patient denies any pain. Breathing even and unlabored. IVF infusing well, IV site patent, no signs of infiltration or infection noted. No signs of active bleeding noted. abdominal bandage clean, dry, and intact. Call light with patient. Bed alarm on. Will continue to monitor.
--- NOTE | 2019-02-01 20:00 | NUR ---
PAIN Patient complained of abdominal pain. PRN medication to be administered. Will continue to monitor and reassess.
[2019-02-01] MEDS: MORPHINE 4 MG/ML INJ. SYRINGE IVP PRN (20:03)
[2019-02-01] MEDS: ENOXAPARIN SODIUM 40 MG/0.4 ML SYRINGE SUBCUT SCH (20:04)
--- NOTE | 2019-02-01 21:00 | NUR ---
EDUCATION: IS Patient educated on proper use of Incentive Spirometer. Patient was able to demonstrate proper use to RN.
[2019-02-01 22:58] VITALS: BP_SYST 106
--- NOTE | 2019-02-01 23:00 | NUR ---
ROUNDS Patient in bed sleeping at this time. No s/s of acute distress noted. Breathing even and unlabored. IVF infusing well. Anderson attached, secured and draining by gravity. Call light with patient. Bed alarm on. Will continue to monitor.
--- NOTE | 2019-02-02 01:00 | NUR ---
ROUNDS Patient sleeping comfortably. No signs of discomfort noted. Chest rise and fall even bilaterally. IVF infusing well. Call light with patient. Bed alarm on. Will continue to monitor.
[2019-02-02] MEDS: MORPHINE 4 MG/ML INJ. SYRINGE IVP PRN ×3 (02:34→18:34)
--- NOTE | 2019-02-02 03:00 | NUR ---
ROUNDS Patient sleeping at this time. No s/s of acute distress noted. Breathing even and unlabored. IVF infusing well. Call light with patient. Bed alarm on. Will continue to monitor.
[2019-02-02 04:40] VITALS: BP_SYST 98
--- NOTE | 2019-02-02 05:00 | NUR ---
ANTIBIOTICS/ROUNDS Patient in bed awake, no signs of discomfort, patient denies any pain. IV antibiotic hung at this time. Call light with patient. Bed alarm on. Will continue to monitor.
[2019-02-02] MEDS: metroNIDAZOLE 500 mg/NS 100 ML IV SCH ×3 (05:22→21:38)
--- NOTE | 2019-02-02 06:00 | NUR ---
MONCADA/BLADDER SCAN Patient output at 200ml throughout shift, bloody urine noted in moncada bag. Bladder scan conducted, 0 ml detected. Patient denies any pain or discomfort. Charge nurse made aware. Will endorse to dayshift nurse.
--- NOTE | 2019-02-02 06:24 | NUR ---
CLOSING NOTES Patient in bed sleeping at this time. No s/s of acute distress noted. Breathing is even and unlabored. IVF infusing well, IV site is patent, no signs of infiltration or infection noted. SCDs attached and operating. Anderson attached, secured, and draining by gravity. Abdominal dressing attached, clean, and dry. No signs of active bleeding noted. All needs met throughout shift. Fall and safety precautions maintained throughout shift. Will continue to monitor until patient care is endorsed to oncoming dayshift nurse.
[2019-02-02 08:00] VITALS: BP_SYST 103
--- NOTE | 2019-02-02 08:00 | NUR ---
initial notes rec patient awake alert with hob elevated. ivf infusing well on the l wrist. no infiltration noted. resp easy and unlabored. no sob noted. bed to the lowest position and side rails up and locked. call light within reached and knows when to call for assistance. abdominal dressing intact. no bleeding noted.
[2019-02-02] MEDS: PANTOPRAZOLE SODIUM 40 MG/VIAL (PROTONIX) IVP SCH (08:40)
[2019-02-02] MEDS: KCL 20 mEq in D5/0.45NS 1000mL 1,000 ML IV SCH ×2 (08:50→21:38)
[2019-02-02] MEDS: CARVEDILOL 12.5 MG TABLET (COREG) PO SCH ×2 (08:56→21:00)
[2019-02-02 09:42] VITALS: BP_SYST 103
--- NOTE | 2019-02-02 10:00 | NUR ---
rounds due meds were given and yokasta well. med for pain and jac to sleep after.bed to the lowest position and transportation services representative ails up and locked. call light within reached .
[2019-02-02 11:41] VITALS: BP_SYST 98
--- NOTE | 2019-02-02 12:00 | NUR ---
rounds up sitting at bedside and yokasta well. no sob noted. denies pain at this time. call light within reached.
[2019-02-02] MEDS: LISINOPRIL 10 MG TABLET (PRINIVIL) PO SCH (13:23)
--- NOTE | 2019-02-02 14:00 | NUR ---
rounds was sitted at the bedside and yokasta well and watching tv. no sob noted.
--- NOTE | 2019-02-02 16:00 | NUR ---
rounds sleeping soundly and no sob noted.
[2019-02-02 16:56] VITALS: BP_SYST 106
--- NOTE | 2019-02-02 18:45 | NUR ---
closing notes dr crawford was called re low urine output of 100 cc only. unable to register bladder scan bec of the tape on the abd dressing . pt stated no pressure and bladder is not distended when checked. pt was back in bed and was medicated. daughter at bedside. no osb noted. bed to the lowest position.
--- NOTE | 2019-02-02 19:15 | NUR ---
OPENING NOTE Received report from Sravani. Patient resting in bed awake, alert, oriented x4. Breathing unlabored and even on room air. No signs of distress, no needs at this time. Fall and safety precautions in place. Bed in lowest position, brake on, alarm on, call light within reach. IVF infusing as ordered. SCDs on. Anderson catheter draining via gravity. Family at the bedside. Will continue to monitor.
--- NOTE | 2019-02-02 20:00 | NUR ---
Dr. Johnson at the bedside. Informed him that per day shift nurse, Sravani, patient only had 100cc of urine output during day shift and unable to get a reading from the bladder scanner due to surgical dressing on abd also made him aware that patient has not had a bowel movement since Monday 01/29. Dr. Johnson stated that the urine output is okay and to keep her moncada catheter in. He also stated that he does not want to force a bowel movement with medications and that she should have a bowel movement in 2-3 days. No orders received at this time. Updated patient and family. Educated patient on increasing her PO fluids.
--- NOTE | 2019-02-02 20:15 | NUR ---
Dr. Aquino called to check on patient. Informed him that patient has not passed gas, nor had a bowel movement yet and her urine output has been 100cc for day shift. Dr. Aquino wants patient to work with PT. Informed him that Dr. Johnson already put in an order for PT. No new orders received.
[2019-02-02 20:20] VITALS: BP_SYST 105
[2019-02-02] MEDS: ENOXAPARIN SODIUM 40 MG/0.4 ML SYRINGE SUBCUT SCH (21:42)
--- NOTE | 2019-02-02 21:44 | NUR ---
Med pass. Held coreg due to decreased BP. IV abx hung. New IVF hung.
--- NOTE | 2019-02-02 22:11 | NUR ---
ENDORSED CARE TO PHILIPPE EID.
--- NOTE | 2019-02-02 22:12 | NUR ---
ASSUMPTION OF CARE RECEIVED PT. A/OX4, NO DISTRESS NOTED, DENIES PAIN, UPDATED WITH PLAN OF CARE, ENCOURAGED PT. TO USE CALL LIGHT FOR ASSISTANCE, PT. VERBALIZED UNDERSTANDING, BED IN LOWEST POSITION, BED ALARM ON.
--- NOTE | 2019-02-03 | NUR ---
RN ROUNDS PT. RESTING QUIETLY, NO DISTRESS NOTED, DENIES PAIN, CALL LIGHT WITHIN REACH, BED IN LOWEST POSITION, BED ALARM ON.
--- NOTE | 2019-02-03 02:00 | NUR ---
RN ROUNDS PT. SLEEPING, NO DISTRESS NOTED, DENIES PAIN, CALL LIGHT WITHIN REACH, BED IN LOWEST POSITION, BED ALARM ON.
[2019-02-03 02:19] VITALS: BP_SYST 95
--- NOTE | 2019-02-03 04:00 | NUR ---
RN ROUNDS PT. ASLEEP, NO DISTRESS NOTED, DENIES PAIN, CALL LIGHT WITHIN REACH, BED IN LOWEST POSITION.
[2019-02-03] MEDS: metroNIDAZOLE 500 mg/NS 100 ML IV SCH ×3 (05:14→21:08)
[2019-02-03] MEDS: KCL 20 mEq in D5/0.45NS 1000mL 1,000 ML IV SCH ×2 (05:14→15:22)
[2019-02-03 05:50] LABS: BASOPHILS % (AUTO) 0.2 % (0.0-2.0); EOSINOPHILS # (AUTO) 0.2 K/uL (0.0-0.4); EOSINOPHILS % (AUTO) 3.2 % (0.0-4.0); HEMOGLOBIN 10.1 g/dL (12.0-16.0); LYMPHOCYTES # (AUTO) 0.8 K/uL (1.0-5.5); LYMPHOCYTES % (AUTO) 12.3 % (20.5-51.5); MEAN CORPUSCULAR HEMOGLOBIN 33 pg (27-31); MEAN CORPUSCULAR HGB CONC 34 % (32-36); MEAN CORPUSCULAR VOLUME 98 fL (79.0-98.0); MONOCYTES # (AUTO) 0.4 K/uL (0.0-1.0); NEUTROPHILS # (AUTO) 4.9 K/uL (1.8-7.7); NEUTROPHILS % (AUTO) 77.3 % (40.0-70.0); PLATELET COUNT (AUTO) 149 K/uL (130-430); RED BLOOD CELL COUNT(AUTO) 3.05 MIL/uL (4.2-6.2); RED CELL DISTRIBUTION WIDTH 13.1 % (9.0-15.0); WHITE BLOOD COUNT (AUTO) 6.3 K/uL (4.8-10.8)
--- NOTE | 2019-02-03 06:17 | NUR ---
CLOSING NOTES PT. IS SLEEPING, NO DISTRESS NOTED, DENIES PAIN, DRESSING TO LOWER ABDOMEN IN PLACE IS CLEAN, DRY, INTACT. BED IN LOWEST POSITION, BED ALARM ON.
[2019-02-03 07:07] LABS: ALANINE AMINOTRANSFERASE 8 U/L (12-78); ALBUMIN 2.2 g/dL (3.4-4.8); ANION GAP 3 (5-15); ASPARTATE AMINOTRANSFERASE 11 U/L (10-37); CALCIUM 8.5 mg/dL (8.4-11.0); CHLORIDE 107 mmol/L (98-107); CREATININE 1.02 mg/dL (0.55-1.30); GLUCOSE 105 mg/dL (70-99); POTASSIUM 4.3 mmol/L (3.5-5.1); SODIUM SERUM 137 mmol/L (136-145); TOTAL BILIRUBIN 0.5 mg/dL (0.0-1.0); UREA NITROGEN, BLOOD 8 mg/dL (8-21)
[2019-02-03 08:00] VITALS: BP_SYST 115
[2019-02-03] MEDS: PANTOPRAZOLE SODIUM 40 MG/VIAL (PROTONIX) IVP SCH (08:01)
[2019-02-03] MEDS: MORPHINE 4 MG/ML INJ. SYRINGE IVP PRN ×2 (08:01→17:12)
--- NOTE | 2019-02-03 08:08 | NUR ---
am rounds: oriented x4. pain is 7/10, medicated with mophine 4 mg. started on soft low fiber diet. midline dressing is dry and intact. iv fluids of D5 1/2 NS with kcl 20 meq at 100 cc/hr on the left wrist gauge 18, patent and intact. safety precautions in place. call light within reach.
[2019-02-03] MEDS: CARVEDILOL 12.5 MG TABLET (COREG) PO SCH ×2 (09:15→21:09)
--- NOTE | 2019-02-03 09:15 | NUR ---
dressing change: midline incision s/p ex-lap 02/01/19, with 7 rogelio, intact, incision is well approximated. no signs of infection noted. cleansed with normal saline, pat dried, covered with foam dressing.
[2019-02-03] MEDS: LISINOPRIL 10 MG TABLET (PRINIVIL) PO SCH (09:16)
--- NOTE | 2019-02-03 10:30 | NUR ---
Ambulation: Walked with physical therapy all wound the unit. Tolerated activity well.
[2019-02-03 11:25] VITALS: BP_SYST 101
--- NOTE | 2019-02-03 14:00 | NUR ---
Ambulation: Walked patient in the hallway with front wheel walker. Tolerated activity well.
--- NOTE | 2019-02-03 14:38 | NUR ---
Nutrition Assessment A - RD reviewed pertinent nutrition-related info via EMR (physician notes/nursing notes/labs/meds/nursing care trends/care activity). Pt seen resting in bed w/ two friends at bedside. Pt is POD 2 s/p exploratory laparotomy and lysis of adhesions on 02/01/19. Pt reported slowly improving appetite. Pt's clear liquid diet lunch tray seen less than 50% eaten. Pt reported that she enjoyed the Ensure Clear ONS. RD encouraged pt to continue to increase PO intakes for adequate nutrition for healing. 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 Anthropometrics verified. Pt voiced preference for fish, and dislike of beef. RD noted in [employer]. Current Diet Order/Nutrition Support: clear liquid x0 days Ht: 64"/5'4" Wt: 143 lb/65 kg IBW: 120 lb/55 kg %IBW: 118% BMI: 24.5 kg/m2 (normal) ESTIMATED NUTRITIONAL NEEDS CALORIES/DAY: 6551-9996 kcal/day (30-35 kcal/kg CBW for Sx healing) PROTEIN/DAY: 78-98 gm/day (1.2-1.5 gm/kg CBW for Sx healing) FLUID/DAY: 2-2.3 L/day (1 ml/kcal/day for maintenance) D - Increased nutritional needs related to metabolic demands as evidenced by estimated nutritional requirements for surgical healing. I - Recommend continuing clear liquid diet (comes standard w/ Ensure Clear TID; provides 720 kcal/day, 24 gm protein/day) M - Monitor advancement of diet, appetite, and PO intakes w/ goal of pt meeting at least 75% of estimated nutritional needs, labs trending WNL, normal GI function, and skin integrity/wt maintenance E - High Risk: RD to F/U within 2-3 days
--- NOTE | 2019-02-03 14:45 | NUR ---
Dietitian Recommendation * Recommend continuing clear liquid diet (comes standard w/ Ensure Clear TID; provides 720 kcal/day, 24 gm protein/day) LP, RD Please refer to Nutrition Assessment for details.
[2019-02-03 15:33] VITALS: BP_SYST 107
--- NOTE | 2019-02-03 16:31 | NUR ---
Surgeon rounds: Seen by Dr. Aquino. incision was checked by him. Instructed patient to follow u with him in one week when she gets discharged.
[2019-02-03] MEDS: RIVAROXABAN 10 MG TABLET PO SCH (16:55)
[2019-02-03 17:07] VITALS: BP_SYST 118
--- NOTE | 2019-02-03 18:35 | NUR ---
DC LINTON: Linton catheter is removed per MD's order. Needs attended. NO change in assessment.
--- NOTE | 2019-02-03 19:40 | NUR ---
ROUNDS PATIENT IN BED, WATCHING TV, NOT IN DISTRESS, VITALS STABLE. DENIES ANY PAIN AT THIS TIME. ASSESSMENT DONE AND DOCUMENTED. SEE FLOWSHEET. NEEDS ATTENDED TO. SAFETY AND FALL PRECAUTION MEASURES IN PLACED. BED IN LOW AND LOCKED POSITION. CALL LIGHT PLACED WITHIN REACH.
--- NOTE | 2019-02-03 20:15 | NUR ---
NOTES ASSISTED PATIENT TO THE BEDSIDE COMMODE TO VOID, WITH SUFFICIENT AMOUNT OF URINE OUTPUT. NO COMPLAINTS AT THIS TIME. WILL CONTINUE TO MONITOR.
[2019-02-03] MEDS: ENOXAPARIN SODIUM 40 MG/0.4 ML SYRINGE SUBCUT SCH (21:09)
--- NOTE | 2019-02-03 21:20 | NUR ---
MEDICATION DUE MEDICATIONS GIVEN SCHEDULED, TOLERATED WELL. WILL CONTINUE TO MONITOR.
--- NOTE | 2019-02-04 00:12 | NUR ---
PATIENT RESTING: Patient resting quietly. No acute distress noted. Vital signs within normal range.
[2019-02-04 01:05] VITALS: BP_SYST 109
--- NOTE | 2019-02-04 02:13 | NUR ---
ROUNDS PATIENT ASLEEP, RESPIRATIONS EVEN AND UNLABORED, NO SIGNS OF ANY PAIN AND DISCOMFORT NOTED. WILL CONTINUE TO MONITOR.
--- NOTE | 2019-02-04 04:15 | NUR ---
PATIENT RESTING: Patient resting quietly. No acute distress noted. Vital signs within normal range.
[2019-02-04] MEDS: KCL 20 mEq in D5/0.45NS 1000mL 1,000 ML IV SCH ×3 (04:50→20:56)
[2019-02-04] MEDS: metroNIDAZOLE 500 mg/NS 100 ML IV SCH ×3 (05:13→21:04)
--- NOTE | 2019-02-04 06:36 | NUR ---
CLOSING NOTES PATIENT AWAKE, VITALS STABLE, DENIES ANY PAIN AND DISCOMFORT AT THIS TIME. ALL NEEDS ATTENDED TO. SAFETY AND FALL PRECAUTION MEASURES MAINTAINED. CALL LIGHT PLACED WITHIN REACH.
--- NOTE | 2019-02-04 07:31 | NUR ---
A/OX4. IV ON LEFT WRIST, #18, INFUSING D5 1/2NS + 20MEQ KCL AT 100ML. PACED RHYTHM ON MONITOR. POC IS INSTRUCTED. CALL LIGHT IN PLACE, BED LOCKED AT THE LOWEST POSITION, WILL CONTINUE TO MONITOR.
[2019-02-04 08:00] VITALS: BP_SYST 126
[2019-02-04] MEDS: MORPHINE 4 MG/ML INJ. SYRINGE IVP PRN (08:08)
[2019-02-04] MEDS: PANTOPRAZOLE SODIUM 40 MG/VIAL (PROTONIX) IVP SCH (08:09)
[2019-02-04] MEDS: CARVEDILOL 12.5 MG TABLET (COREG) PO SCH ×2 (08:10→20:51)
[2019-02-04] MEDS: LISINOPRIL 10 MG TABLET (PRINIVIL) PO SCH (08:10)
--- NOTE | 2019-02-04 10:30 | NUR ---
Patient is resting, no signs of distress noted.
[2019-02-04] MEDS ORDERED: BISACODYL 10 MG/SUPPOSITORY RC ONE (11:30)
[2019-02-04 12:00] VITALS: BP_SYST 101; BP_SYST 112
--- NOTE | 2019-02-04 13:46 | NUR ---
patient is taken to the [facility].
--- NOTE | 2019-02-04 15:00 | NUR ---
Patient had a moderate soft BM.
[2019-02-04] MEDS: RIVAROXABAN 10 MG TABLET PO SCH (18:52)
--- NOTE | 2019-02-04 19:34 | NUR ---
OPENING NOTES Pt and endorsement received from day shift nurse. Pt is awake, alert, oriented and lying in bed while watching tv. Pt on IVF of D5,0.45NS with 20mEq KCL at 100ml/hr and infusing well on right forearm G22. No complains of pain or discomfort at this time. No signs of acute distress or SOB noted. Encouraged to use call light when needed. Safety precautions in place with 3 side rails up, wheels locked, bed alarm on and in lowest position. Call light with pt. Will continue to monitor.
--- NOTE | 2019-02-04 19:45 | NUR ---
SPOKE TO DR. AQUINO Spoke to Dr. Aquino regarding pt's condition that pt had a bowel movement twice from day shift. Dr. Aquino ordered to advance diet to regular diet and said if Dr. Johnson asks the pt can be discharged. Read back order and will carry out.
[2019-02-04 20:47] VITALS: BP_SYST 126
[2019-02-04] MEDS: ENOXAPARIN SODIUM 40 MG/0.4 ML SYRINGE SUBCUT SCH (20:53)
[2019-02-04] MEDS: ACETAMINOPHEN/CODEINE 300 MG-30 MG TABLET PO PRN (22:41)
--- NOTE | 2019-02-04 22:41 | NUR ---
TYLENOL WITH CODEINE GIVEN Pt complained of abdominal pain with a scale of 6/10. Tylenol with codeine 1 tablet PO given as ordered. No signs of acute distress or SOB noted. Encouraged deep breathing exercises and position of comfort. Will continue to monitor.
[2019-02-05 00:27] VITALS: BP_SYST 111
--- NOTE | 2019-02-05 01:15 | NUR ---
ROUNDS Pt is resting in bed with both eyes closed, with visible chest rise and fall with unlabored breathing noted. No complains of pain and no signs of acute distress noted. IVF infusing well. Safety precautions in place and call light with pt. Will continue to monitor.
--- NOTE | 2019-02-05 03:31 | NUR ---
ROUNDS Pt is resting in bed with both eyes closed, with visible chest rise and fall with unlabored breathing noted. Pt is easily arousable. No signs of acute distress noted. IVF infusing well. No needs at this time. Safety precautions in place and call light with pt. Will continue to monitor.
[2019-02-05] MEDS: metroNIDAZOLE 500 mg/NS 100 ML IV SCH (05:32)
--- NOTE | 2019-02-05 06:22 | NUR ---
CLOSING NOTES Pt is resting in bed with both eyes closed, with visible chest rise and fall with unlabored breathing noted. IVF infusing well. No complains of pain or discomfort at this time. No signs of acute distress or SOB noted. All needs attended throughout the shift. Safety precautions maintained with 3 side rails up, wheels locked, bed alarm on and in lowest position. Call light with pt. Will endorse to day shift nurse.
--- NOTE | 2019-02-05 07:14 | NUR ---
PATIENT IS SLEEPING, AROUSABLE. IV ON RIGHT FA,#22 , INFUSING D5 1/2NS + 20MEQ KCL AT 100ML. PACED RHYTHM ON MONITOR. POC IS INSTRUCTED. CALL LIGHT IN PLACE, BED LOCKED AT THE LOWEST POSITION, WILL CONTINUE TO MONITOR.
[2019-02-05 08:00] VITALS: BP_SYST 124
[2019-02-05] MEDS: LISINOPRIL 10 MG TABLET (PRINIVIL) PO SCH (08:30)
[2019-02-05] MEDS: PANTOPRAZOLE SODIUM 40 MG/VIAL (PROTONIX) IVP SCH (08:31)
[2019-02-05] MEDS: KCL 20 mEq in D5/0.45NS 1000mL 1,000 ML IV SCH (08:31)
[2019-02-05] MEDS: CARVEDILOL 12.5 MG TABLET (COREG) PO SCH (08:31)
--- NOTE | 2019-02-05 09:35 | NUR ---
Patient walks to bathroom and back. No signs of distress noted.
--- NOTE | 2019-02-05 11:47 | NUR ---
Discharge Planning: DCP spoke to Saumya at [facility] (f [phone] p [phone]) patient accepted DCP waiting for room assignment, CM made aware. Addendum: 02/05/19 at 1414 by Pat Knox DP Per Saumya at [facility] (f [phone] p [phone]) Rm 1101A after 4:00pm # to report [phone], patient nurse made aware Addendum: 02/05/19 at 1440 by Pat Knox DP [facility] (f [phone] p [phone]) Rm 1101A, transportation arranged with [facility] ([phone]) 5:00pm. Nurse made aware packet taken to nurse station.
[2019-02-05 12:26] VITALS: BP_SYST 123
[2019-02-05 14:27] VITALS: BP_SYST 123
[2019-02-05 15:10] VITALS: BP_SYST 147
--- NOTE | 2019-02-05 15:10 | NUR ---
PATIENT IS GOING TO BATHROOM ON A WALKER WITH RN'S MINIMAL ASSISTANCE.
[2019-02-05] MEDS: ACETAMINOPHEN/CODEINE 300 MG-30 MG TABLET PO PRN (15:24)
--- NOTE | 2019-02-05 17:30 | NUR ---
PT TRANSFERRED Report given to Cameron Nevarez. Transfer packet with Transfer Orders and Medication Reconciliation form given to EMT with report. Exitcare provided. [facility] ID band removed, replaced with ID band with pt's name and . All belongings sent with patient. Patient left floor via gurney escorted by EMT in no distress.
== END 2019-02-05 17:30 | DRG 330 ==
LOC: SED 11:41 → SMU 14:10 → STU 01-30 00:42
PROVIDERS: ADMIT Family Medicine; ATTEND Family Medicine
PROC: 0DNN0ZZ Release Sigmoid Colon, Open Approach (ICD-10-PCS; 2019-02-01)
PROC: 0DN80ZZ Release Small Intestine, Open Approach (ICD-10-PCS; 2019-02-01)
PROC: 0DQ80ZZ Repair Small Intestine, Open Approach (ICD-10-PCS; principal; 2019-02-01 12:30)
DX: K56.52 Intestinal adhesions [bands] with complete obstruction (principal); R18.8 Other ascites; I42.0 Dilated cardiomyopathy; I50.42 Chronic combined systolic (congestive) and diastolic (congestive) heart failure; K57.90 Diverticulosis of intestine, part unspecified, without perforation or abscess without bleeding; I25.10 Atherosclerotic heart disease of native coronary artery without angina pectoris; I11.0 Hypertensive heart disease with heart failure; I25.5 Ischemic cardiomyopathy; I08.1 Rheumatic disorders of both mitral and tricuspid valves; Z96.652 Presence of left artificial knee joint; M17.12 Unilateral primary osteoarthritis, left knee; E11.9 Type 2 diabetes mellitus without complications; Z88.0 Allergy status to penicillin; Z79.899 Other long term (current) drug therapy; Z95.810 Presence of automatic (implantable) cardiac defibrillator; I25.2 Old myocardial infarction; Z85.72 Personal history of non-Hodgkin lymphomas; Z79.01 Long term (current) use of anticoagulants; Z86.74 Personal history of sudden cardiac arrest; Z90.710 Acquired absence of both cervix and uterus; Z92.21 Personal history of antineoplastic chemotherapy
CPT/HCPCS: 36415; 71045; 74021; 74250-TC; 80048; 80053; 83690-TC; 83880; 84484; 85025; 85610-TC; 85730-TC; 93005; 93306; 94010; 96374; 96375; 97116-GP; 97530-GP; 99285; C9113; C9399; G0378; J0780; J1170; J1650; J1885; J1956; J2250; J2270; J2405; J2704; J3010; J3250; J3490; J7120; Q9963

== ENCOUNTER 2021-07-20 14:07 | Emergency (ER) | payer OTHER ==
[~2021-07-20] VITALS: Ht 167.6 cm; Wt 68.0 kg
[~2021-07-20 14:07] MED LIST changes: -FAMO10TA41 PO; -FURO-150 PO; +LISI40TA13 PO; -LISI40TA4 PO; -METR500T PO; -SACC250C3 PO; +ZOLP5TAB2 PO
--- NOTE | 2021-07-20 15:15 | NUR ---
patient to ED at this time for worsening left leg chronic pain. patient states the pain starts at the pelvic area and shoots down her left leg. patient states pain is 7/10
[2021-07-20 15:30] VITALS: BP_SYST 130
--- NOTE | 2021-07-20 16:43 | NUR ---
patient back from [facility] and waiting for radiology results.
[2021-07-20] MEDS ORDERED: ACET-2634 PO ×2 (18:18→18:22)
[2021-07-20] MEDS ORDERED: BACL10TA PO (18:22)
[2021-07-20] MEDS ORDERED: LIDO1ADH5 TP (18:22)
[2021-07-20] MEDS ORDERED: PRED20TA PO (18:22)
[2021-07-20] MEDS ORDERED: LIDOCAINE PATCH 5% 1 EA TP SCH (18:30)
[2021-07-20] MEDS ORDERED: predniSONE 20 MG TABLET PO ONE (18:30)
[2021-07-20] MEDS ORDERED: ACETAMINOPHEN 500 MG TABLET PO ONE (18:30)
[2021-07-20] MEDS ORDERED: BACLOFEN 10 MG TABLET PO ONE (18:30)
[2021-07-20 19:09] VITALS: BP_SYST 110
--- NOTE | 2021-07-20 19:11 | NUR ---
Patient given written and verbal discharge instructions and verbalizes understanding. ER MD discussed with patient the results and treatment provided. Patient in stable condition. ID arm band removed. No iv inserted this visit Rx of given. refused baclofen and will fill rx. Patient educated on pain management and to follow up with PMD. Pain Scale . Opportunity for questions provided and answered. Medication side effect fact sheet provided.
== END 2021-07-20 19:09 | disposition home or self-care (01) ==
LOC: SED 14:07
DX: M54.32 Sciatica, left side (principal); I10 Essential (primary) hypertension; I25.2 Old myocardial infarction; Z88.0 Allergy status to penicillin; Z79.899 Other long term (current) drug therapy
CPT/HCPCS: 73502; 99284; J7512

== ENCOUNTER 2023-12-01 12:43 | Emergency (ER) | payer OTHER ==
[~2023-12-01] VITALS: Ht 154.9 cm; Wt 62.1 kg
[~2023-12-01 12:43] MED LIST changes: +ACET-2634 PO; +BACL10TA PO; +LIDO1ADH5 TP; -POTA8TAB4 PO; +POTA8TAB66 PO; +PRED20TA PO
[2023-12-01 12:54] VITALS: BP_SYST 123; PULSE 76; RESP 18; TEMP 99.6; O2SAT 97
[2023-12-01] MEDS: CLINDAMYCIN 900 mg/50mL D5W 50 ML IV ONE (13:14)
[2023-12-01] MEDS ORDERED: NALOXONE HCL 0.4 MG/ML AMP (NARCAN) IVP PRN (13:15)
[2023-12-01] MEDS ORDERED: ACET1TAB93 PO (13:25)
[2023-12-01] MEDS ORDERED: CLIN-142 PO (13:25)
[2023-12-01] MEDS: ACETAMINOPHEN/CODEINE 300 MG-30 MG TABLET PO ONE (13:28)
[2023-12-01] MEDS ORDERED: ACETAMINOPHEN 500 MG TABLET ONE (13:35)
[2023-12-01 13:58] VITALS: BP_SYST 104; PULSE 73; RESP 20; TEMP 99; O2SAT 94
== END 2023-12-01 13:58 | disposition home or self-care (01) ==
LOC: SED 12:43
DX: K04.7 Periapical abscess without sinus (principal); I10 Essential (primary) hypertension; Z88.0 Allergy status to penicillin; Z79.899 Other long term (current) drug therapy
CPT/HCPCS: 99284; 96365; J3490